=== PATIENT | male | born 1950 | race Caucasian/White ===

== ENCOUNTER 2018-03-30 08:30 | Outpatient (RCR) | payer BC, SELFPAY ==
--- NOTE | 2018-03-05 08:22 | ST.OPTN ---
On February 27, 2018 our therapy services consisting of Speech, Occupational, and Physical therapy transitioned from [employer] electronic documentation system to a new [employer] electronic system. All documentation prior to February 27 can be found under [employer] saved data. From February 27 forward, all medical record documentation will be in [employer] 6[employer]1.
--- NOTE | 2018-03-06 10:01 | ST.OPIE ---
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 Pt receiving LSVT Big tx simultaneously. Referral Referring Physician Dr. Barby Ortiz Reason for Referral Reduced vocal loudness secondary to Parkinson's Disease; Referred for LSVT Setting Setting Outpatient Care Patient History General Information 67-yr-old left-handed male with Parkinson's disease, diagnosed ~3.5 yrs ago. Pt has a family history of PD: father, brother. Therefore, he is familiar with the disease and likely progression. He has mild-moderate right side resting hand/arm tremor and states that his c/o low vocal loudness, although the pt states he is naturally soft spoken. He denies changes in swallow, voice, and cognition. The pt is a retired [employer] employee of >30 years. He and his moved to [place] 3 years ago from [place] with plans to retire here. He reported participating in LSVT Loud and Big programs at the recommendation of his Neurologist, Dr. Ortiz, and states he is eager to learn strategies early in disease progression to manage symptoms . Hearing Hearing Level Normal [place] Langauge Language(s) Spoken in the Home [place] Occupational Status Occupation Status Retired from [employer] Previous Therapy Previous Speech-Language Therapy No Oral Motor Assessment Source: [employer] ([facility]). Oral-Motor Eval Completed No - Laryngeal Performance S/Z Ratio Functional for Speech Yes Reduced Laryngeal Function Relative to No Respiration CAPE-V Overall Severity 15% Roughness 22%, intermittent. Greater with increased vocal loudness. Breathiness 0% Strain 0% Pitch 5% Loudness 25% Normal Resonance? Yes Additional Features Pitch Instability Other Features Observed Improved jitter & shimmer with increased vocal loudness. Maximum Phonation Time MPT Norms: Women (15-25) Men (25-35) Loudness (50-60 dB); Speaking Rate: Oral Reading of Sentences (190 Words Per Minute); Oral Reading of Paragraphs (160-170 WPM); Speaking Rate in Conversation (150-250 WPM) Maximum Phonation Time 24 Maximum Phonation Time Adequate for Speech Reduced Unstable Loudness Jitter/Shimmer Norms: Jitter (Less than or equal to 1.040% - Frequency) Norms: Shimmer (Less than or equal to 3.810% - Amplitude) Jitter Best in 3 trials: 048%. WNL in 2/3 trials Shimmer Best in 3 trials: 3.72%. Impaired in 3/3 trials. Pitch [place] Pitch [place] WFL Breath Support Breath Support At Rest Thoracic Clavicular Mixed Breath Support Sustained Phonation Abdominal Breath Support Conversation Abdominal Clavicular Mixed Speaks on Room Air Yes Postural Alignment Stance Balanced Shoulders Symmetrical Voice Pitch Range Norms: Women (100-300 Hz) Men (70-250 Hz) Fundamental Frequency Norms: Women (Mean: 225 Hz; Range: 155-334 Hz) Men ( Mean: 128 Hz; Range: 85-196 Hz) Voice Pitch Normal Voice Loudness Moderately Soft/Quiet Monoloudness Voice Phonatory-based Quality Normal Fundamental Frequency 116 Hz, WNL Intensity <60 dB in conversation Paradoxical Vocal Fold Movement No Indications Resonance Nasal Resonance Normal Oral Resonance Normal Therapeutic Techniques Therapy Tactics Breath Support Increase Loudness Findings Findings Mild Impairment Voice/Resonance Assessment Assessment Pt presents with mild vocal impairment secondary to Parkinson's disease and characterized by mild-moderate reduced vocal loudness, abnormal loudness perturbation , intermittent pitch perturbances which improve with increased vocal loudness, occasional hoarseness with increased vocal loudness, and mild monotone pitch. The pt was stimulable to LSVT treatment techniques and is early in the disease process, making him an excellent candidate for LSVT-Loud therapy. Prognosis Rehabilitation Potential Excellent - Recommendations Treatment Recommended Yes Treatment Frequency/Duration 16 sessions in 4-5 wks Placement Recommendation Home Therapy Recommendations Initiate LSVT-Loud treatment Short Term Goals 1. Sustain vowel phonation for 25 seconds at 70 dB or greater across 3 trials. 2. Perform pitch glide exercises with average loudness levels of 65 dB or greater across 3 treatment sessions. 3. Read phrases with average loudness levels of 65 dB with 90% accuracy. 4. Perform HEP tasks 2x daily with 90% accuracy over 2 weeks . Long-Term Goals 1. Demonstrate breath support for target loudness WNL. 2. Pitch Range WNL at average loudness levels of 65 dB or greater. 3. Demonstrate independent ability to modify vocal loudness to meet the needs of conversation partners and settings while maitaining >95% speech intelligibility. 4. Demonstrate consistent compliance with HEP tasks to maintain vocal loudness and speech intelligibility WNL. Patient/Caregiver Education Patient/Family Education Described results of evaluation Patient Understanding Patient Demonstration Patient Needs More Info Please Sign and Return: I have reviewed this Plan of Care and certify that the skilled therapy services above are required to meet the patient???s needs. Physician Signature Date Printed Name and Credentials
--- NOTE | 2018-04-02 09:20 | ST.OPDS ---
PRIMARY SCHOOL TEACHER Treatment Note PRIMARY SCHOOL TEACHER Treatment Note Start: 03/05/18 10:48 Freq: Status: Active Protocol: Document 03/30/18 09:31 [email or web address] (Rec: 03/30/18 09:46 [email or web address]) Speech Pathology Treatment Note Session Time Visit Start Time 08:30 Visit Stop Time 09:30 Total Visit Minutes 60 Visit Information Visit Number Plan of Care Dates 03/05/18 - 04/06/18 Insurance Information Fed Setting Treatment Setting Outpatient Care Visit Type Note Type Discharge Summary General Information General Information Parkinson's disease dx ~3.5 yrs ago. Pt with family hx of PD (father, brother). Subjective Observations/Patient Presentation Pt w/ symptoms of seasonal allergies. No other complaints . Reports feeling comfortable with discharge to HEP. Chief Complaint(s) Voice Additional Areas of Concern Progressive effects of PD Rehab Expectation/Goals: Patient Goals Increase loudness/speech intelligibility Patient Knowledge/Awareness of PRIMARY SCHOOL TEACHER Role Excellent in Treatment Patient/Caregiver Compliance with Home Good Exercise Program Objective Short Term Goals 1. Sustain vowel phonation for 20 sec with avg 75 dB x 3 trials. -- Goal Not Met. Max phonation time/loudness met over course of treatment = 28. 25 sec @ 74.3 dB 2. Maintain average loudness levels of 65 dB or greater in conversation of 10 min with 90 % accuracy. -- Goal Met. 3. Perform HEP tasks 2x daily with 90% accuracy over 2 weeks . -- 80% of goal met. Prison Goals 1. Demonstrate breath support for target loudness WNL. -- Goal Met 2. Pitch Range WNL at average loudness levels of 65 dB or greater. -- Goal Met 3. Demonstrate independent ability to modify vocal loudness to meet the needs of conversation partners and settings while maintaining >95% speech intelligibility. -- Goal Met 4. Demonstrate consistent compliance with HEP tasks to maintain vocal loudness and speech intelligibility WNL. -- 80% of Goal Met Treatment Activities Sustained Phonation: MPT=24.75 sec @ 70.9 dB; Avg Loudness 73.5 dB. Acoustic Measures x 3 trials: Fundamental Frequency WNL; Jitter WNL; Shimmer WNL in 2/3 trials. Skilled education/feedback RE performance over course of tx including playback of voice recordings from day of initial evaluation and today. The pt verbalized surprise and pleasure at the increased loudness levels demonstrated and reported equal effort level in producing soft voice at SOC and in producing louder voice today, indicating increased strength of respiratory and laryngeal musculature since SOC. Conversation: 66-71 dB during spontaneous conversation in quiet environment. 73 dB in conversation of 15 min in environment with background noise levels of 69 dB. Pt was 100% intelligible. Pt adapted voice appropriately and independently according to background noise levels. Pt Education: HEP tasks, discharge to HEP, available f/ u of LSVT training in the future, and potential impacts of disease progression on swallow, speech intelligibility, vocal quality , and cognition. Information RE swallow and aspiration risks/precautions provided orally and in writing. Assessment Patient Response to Treatment Good Rehab Potential Excellent Impairments Identified Speech Intelligibility Vocal Quality Progress Towards Goals Excellent Progress Assessment of Overall Progress Improving Rehabilitated Assessment of Improvement Over the course of tx, the pt has demonstrated excellent progress, with goals advancing in conjunction with his performance. The pt has increased loudness levels of conversational speech from <60 dB at SOC to 66-72 dB (WNL) in quiet environments and up to 78 dB in environments with background noise levels as high as 75 dB. He is able to consistently and appropriately modify his loudness levels to meet the needs of multiple listeners in various environments. Occasionally the pt has required cues to maintain target loudness levels, particularly in quiet environments, but has consistently produced speech that is 100% intelligible to this listener. While often uncomfortable with LSVT exercises, the pt has demonstrated pitch range WNL and target loudness levels and has exhibited excellent endurance and compliance with tx tasks. He understands and is able to perform HEP tasks at home, although reports that he is hesitant in being as loud at home as he is in treatment. Education and recommendations have been made regarding importance of HEP tasks for carryover of tx gains, as well as alternative pitch range exercises to reduce risk of monotone voice with disease progression. The pt has exhibited excellent understanding throughout treatment and self-monitoring/ correcting skills. Reviewed with Patient Goals Progress Being Made Home Exercise Program Patient/Caregiver Understanding Excellent Plan Therapeutic Contents Client Education Home Exercise Program Voice Training Provided Patient/Caregiver Instruction Home Exercise Program Plan of Care Questions/Concerns Therapy Recommendations Discharge to Home Exercise Program Visit Care Team Role Provider Type Barby Ortiz MD Attending Provider Non-Staff Primary Care Provider Address: [address] [place] [address], [id number] Please Sign and Return: I have reviewed this Plan of Care and certify that the skilled therapy services above are required to meet the patient?s needs. Physician Signature Date Printed Name and Credentials Clinical Instructor Signature Printed Name and Credentials
== END 2018-03-31 10:52 ==
LOC: SP 08:30
PROVIDERS: PCP Psychiatry & Neurology Neurology; Visit Provider Psychiatry & Neurology Neurology
DX: G20 Parkinson's disease (principal)
CPT/HCPCS: 92507; 92520; 92524

== ENCOUNTER 2018-03-30 09:30 | Outpatient (RCR) | payer BC, SELFPAY ==
--- NOTE | 2018-03-05 15:59 | PT.OIE ---
Current Diagnoses Parkinson's disease (03/05/18) Past Medical History (Last Updated 03/05/18 @ 10:46 by Yulissa Gifford, PT) Pacemaker (Acute) Physical Therapy Initial Evaluation PT-OP-A Visit Information Start: 03/05/18 09:28 Freq: Status: Active Protocol: Activity Type Activity Date Activity User E-Sign Co-Sign Detail Recorded Client Recorded Date Recorded By Document 03/05/18 09:30 AMB [email or web address] 03/05/18 11:45 AMB 03/05/18 09:30 Out-Patient Physical Therapy Visit Information [Visit Information] -Visit Type Initial Evaluation -Visit Start Time 09:30 -Visit Stop Time 10:30 -Total Visit Minutes 60 -Visit Number 1 [Evaluation Information] -Evaluation Date 03/05/18 PT-OP-B Current Condition Start: 03/05/18 09:28 Freq: Status: Active Protocol: Activity Type Activity Date Activity User E-Sign Co-Sign Detail Recorded Client Recorded Date Recorded By Document 03/05/18 09:30 AMB [email or web address] 03/05/18 11:49 AMB 03/05/18 09:30 Current Condition [History of Current Condition] -Current Complaints R hand tremor, decreased gait speed -History of Current Condition The patient notes Parkinson 's diagnosis 3. 5 years ago. His main symptom is R hand tremor. He is left handed. His father and brother have also been diagnosed with Parkinson's. [Prior Functional Status] -Baseline Function- ADL's Independent -Baseline Function- Mobility Independent [Current Functional Impairments ( Reported)] -Functional Limitations- ADL's Increased time to get belt on. Decreased gait speed. [Personal Factors] -Other Personal Factors That May Pacemaker Effect Therapy/Recovery PT-OP-C Subjective Start: 03/05/18 09:28 Freq: Status: Active Protocol: Activity Type Activity Date Activity User E-Sign Co-Sign Detail Recorded Client Recorded Date Recorded By Document 03/05/18 09:30 AMB [email or web address] 03/05/18 11:49 AMB 03/05/18 09:30 OP-PT Subjective [Patient Comments] -Patient Comments Patient states that with meds he does not feel his symptoms have progressed very much over the last 3 years. OP-PT Pain Assessment [Pain Assessment Grid] -Paper Pain Assessment Grid Completed Yes [Location] Left Shoulder -Pain Location Details Associated with yard work, goes down to elbow -Intensity 7 -Scale Used Numeric (1 - 10 ) -Frequency Intermittent PT-OP-D Balance Start: 03/05/18 09:28 Freq: Status: Active Protocol: Activity Type Activity Date Activity User E-Sign Co-Sign Detail Recorded Client Recorded Date Recorded By Document 03/05/18 09:30 AMB [email or web address] 03/05/18 11:57 AMB 03/05/18 09:30 Balance Tests [Romberg] -Romberg steps after 10 seconds [Single Limb Standing] -Single Limb- Right 15 seconds -Single Limb- Left 15 seconds [Semi-Tandem Standing] -Semi-Tandem Standing Balance with head turns and eyes closed increased sway but able to perform PT-OP-E Functional Tests Start: 03/05/18 09:28 Freq: Status: Active Protocol: Activity Type Activity Date Activity User E-Sign Co-Sign Detail Recorded Client Recorded Date Recorded By Document 03/05/18 09:30 AMB [email or web address] 03/05/18 15:32 AMB 03/05/18 09:30 Functional Tests [6 Minute Walk Test] -Distance 1858 feet -Device Used none [Five Times Sit to Stand Test] -Score 8 seconds PT-OP-G Mobility & Gait Start: 03/05/18 09:28 Freq: Status: Active Protocol: Activity Type Activity Date Activity User E-Sign Co-Sign Detail Recorded Client Recorded Date Recorded By Document 03/05/18 09:30 AMB [email or web address] 03/05/18 15:32 AMB 03/05/18 09:30 OP Gait Assessment [Gait] -Gait Assistance Required: Independent [Assistive Devices] -Assistive Device None [Comments] -Gait Comments Decreased R arm swing even with fast gait. Decreased trunk rotation. PT-OP-H Neuro Start: 03/05/18 09:28 Freq: Status: Active Protocol: Activity Type Activity Date Activity User E-Sign Co-Sign Detail Recorded Client Recorded Date Recorded By Document 03/05/18 09:30 AMB [email or web address] 03/05/18 15:32 AMB 03/05/18 09:30 Muscle Tone [Tone Assessment] 1 -Manifestations of Tone Resting Tremors PT-OP-J Posture/Palpation/Skin Start: 03/05/18 09:28 Freq: Status: Active Protocol: Activity Type Activity Date Activity User E-Sign Co-Sign Detail Recorded Client Recorded Date Recorded By Document 03/05/18 09:30 AMB [email or web address] 03/05/18 15:32 AMB 03/05/18 09:30 Posture Evaluation [Position] Standing -Evaluation View Lateral -Head/C-Spine Posture Forward Head PT-OP-K Range of Motion Start: 03/05/18 09:28 Freq: Status: Active Protocol: Activity Type Activity Date Activity User E-Sign Co-Sign Detail Recorded Client Recorded Date Recorded By Document 03/05/18 09:30 AMB [email or web address] 03/05/18 15:32 AMB 03/05/18 09:30 Shoulder Goniometric Range of Motion [Shoulder] Measured in Degrees L -Testing Position Sitting -Flexion 150 R -Testing Position Sitting -Flexion 160 PT-OP-M Strength Start: 03/05/18 09:28 Freq: Status: Active Protocol: Activity Type Activity Date Activity User E-Sign Co-Sign Detail Recorded Client Recorded Date Recorded By Document 03/05/18 09:30 AMB [email or web address] 03/05/18 15:32 AMB 03/05/18 09:30 Hip Strength [Hip Manual Muscle Testing] Right -Flexion (L2) 4 Good -Extension (S1) 4 Good -Abduction 4 Good -Adduction 4 Good Left -Flexion (L2) 4+ Good+ -Extension (S1) 4+ Good+ -Abduction 4+ Good+ -Adduction 4+ Good+ Knee Strength [Knee Manual Muscle Testing] Left -Flexion (S2) 5 Normal -Extension (L3) 5 Normal R -Flexion (S2) 5 Normal -Extension (L3) 5 Normal Ankle/Foot Strength [Ankle and Foot Manual Muscle Testing] Right -Dorsiflexion (L4) 4+ Good+ -Plantarflexion (S1) 4+ Good+ Left -Dorsiflexion (L4) 4+ Good+ -Plantarflexion (S1) 4+ Good+ PT-OP-Q Treatments Start: 03/05/18 09:28 Freq: Status: Active Protocol: Activity Type Activity Date Activity User E-Sign Co-Sign Detail Recorded Client Recorded Date Recorded By Document 03/05/18 09:30 AMB [email or web address] 03/05/18 15:40 AMB 03/05/18 09:30 Neuro Re-Education Treatment [Coordination Activities] 1 -Details Stride stance forward weight shift with UE flex/ ext -Reps/Duration 20 PT-OP-T Assessment and Plan Start: 03/05/18 09:28 Freq: Status: Active Protocol: Activity Type Activity Date Activity User E-Sign Co-Sign Detail Recorded Client Recorded Date Recorded By Document 03/05/18 09:30 AMB [email or web address] 03/05/18 15:57 AMB 03/05/18 09:30 Physical Therapy Assessment [Rehab Potential] -Rehabilitation Potential Good [Evaluation Complexity] -Number of Personal Factors/ 1-2 Comorbidities -Number of Body Systems Impaired 3 -Clinical Presentation at Evaluation Stable [Impairments] -Impairments Balance Coordination Gait [Goals] 3 -Impairment Functional movement -Short Term Goal (STG) The patient will don and doff his belt without difficulty. -STG Duration 2 weeks -Custodial Goal (LTG) The patient will put his jacket on without difficulty and without shoulder pain. -LTG Duration 4 weeks 2 -Impairment Balance -Short Term Goal (STG) The patient will improve his eyes open single leg balance to 30 seconds bilaterally. -STG Duration 2 weeks -Tire Duster Goal (LTG) The patient will perform yard work for 1 hour without LOB. 1 -Impairment Gait -Short Term Goal (STG) The patient will ambulate with his and keep up with her speed over unevern surfaces. -STG Duration 2 weeks -Tire Duster Goal (LTG) The patient will increase his 6MWT to 2, 000 feet. -LTG Duration 4 weeks [Assessment Summary] -Assessment The patient presents to physical therapy with 3. 5 year history of Parkinson's Disease that presents with predominant R UE tremor. He states that he is slightly slower with things than he used to be, and his walking is a bit slower, so he is hoping to improve that. His 6 MWT and 5x sit to stand were within normal limits for his age and gender, but he did show reduced arm swing on the right. He will benefit from LSVT BIG therapy to progress his dynamic balance and multidirectiona l coordination. Physical Therapy Plan [Frequency and Duration] -Frequency of Treatment 4x/Week -Duration of Treatment 1 month -Plan of Care Start Date 03/05/18 -Plan of Care End Date 04/05/18 [Therapeutic Interventions] -Therapeutic Interventions Balance Training Coordination Training Gait Training Manual Therapy Neuromuscular Re-education Self-Care/Home Management Therapeutic Activities Therapeutic Exercises -Modalities Cold Pack/Ice Massage Provider Signature Date
--- NOTE | 2018-03-05 16:01 | PT.OPPOC ---
Current Diagnoses Parkinson's disease (03/05/18) Plan Of Care PT-OP-T Assessment and Plan Start: 03/05/18 09:28 Freq: Status: Active Protocol: Activity Type Activity Date Activity User E-Sign Co-Sign Detail Recorded Client Recorded Date Recorded By Document 03/05/18 09:30 AMB [email or web address] 03/05/18 15:57 AMB 03/05/18 09:30 Physical Therapy Assessment [Rehab Potential] -Rehabilitation Potential Good [Evaluation Complexity] -Number of Personal Factors/ 1-2 Comorbidities -Number of Body Systems Impaired 3 -Clinical Presentation at Evaluation Stable [Impairments] -Impairments Balance Coordination Gait [Goals] 3 -Impairment Functional movement -Short Term Goal (STG) The patient will don and doff his belt without difficulty. -STG Duration 2 weeks -Shop Tech Goal (LTG) The patient will put his jacket on without difficulty and without shoulder pain. -LTG Duration 4 weeks 2 -Impairment Balance -Short Term Goal (STG) The patient will improve his eyes open single leg balance to 30 seconds bilaterally. -STG Duration 2 weeks -Alf Goal (LTG) The patient will perform yard work for 1 hour without LOB. 1 -Impairment Gait -Short Term Goal (STG) The patient will ambulate with his and keep up with her speed over unevern surfaces. -STG Duration 2 weeks -Alf Goal (LTG) The patient will increase his 6MWT to 2, 000 feet. -LTG Duration 4 weeks [Assessment Summary] -Assessment The patient presents to physical therapy with 3. 5 year history of Parkinson's Disease that presents with predominant R UE tremor. He states that he is slightly slower with things than he used to be, and his walking is a bit slower, so he is hoping to improve that. His 6 MWT and 5x sit to stand were within normal limits for his age and gender, but he did show reduced arm swing on the right. He will benefit from LSVT BIG therapy to progress his dynamic balance and multidirectiona l coordination. Physical Therapy Plan [Frequency and Duration] -Frequency of Treatment 4x/Week -Duration of Treatment 1 month -Plan of Care Start Date 03/05/18 -Plan of Care End Date 04/05/18 [Therapeutic Interventions] -Therapeutic Interventions Balance Training Coordination Training Gait Training Manual Therapy Neuromuscular Re-education Self-Care/Home Management Therapeutic Activities Therapeutic Exercises -Modalities Cold Pack/Ice Massage Plan of Care Dates Plan of Care Start Date 03/05/18 Plan of Care End Date 04/05/18 Provider Visit Care Team Role Provider Type Barby Ortiz MD Attending Provider Non-Staff Primary Care Provider Specialty: Neurology Address: [address] [place] [address], [id number] Email: Please Sign and Return: I have reviewed this Plan of Care and certify that the skilled therapy services above are required to meet the patient???s needs. Physician Signature Date Printed Name and Credentials
--- NOTE | 2018-03-06 16:10 | PT.OTN ---
Current Diagnoses Parkinson's disease (03/06/18) Physical Therapy Treatment Note PT-OP-A Visit Information Start: 03/05/18 09:28 Freq: Status: Active Protocol: Activity Type Activity Date Activity User E-Sign Co-Sign Detail Recorded Client Recorded Date Recorded By Document 03/06/18 09:30 AMB [email or web address] 03/06/18 16:03 AMB 03/06/18 09:30 Out-Patient Physical Therapy Visit Information [Visit Information] -Visit Note 75 visits authorized -Visit Start Time 09:30 -Visit Stop Time 10:30 -Total Visit Minutes 60 -Visit Number 2 [Evaluation Information] -Evaluation Date 03/05/18 PT-OP-B Current Condition Start: 03/05/18 09:28 Freq: Status: Active Protocol: Activity Type Activity Date Activity User E-Sign Co-Sign Detail Recorded Client Recorded Date Recorded By Document 03/05/18 09:30 AMB [email or web address] 03/05/18 11:49 AMB 03/05/18 09:30 Current Condition [History of Current Condition] -Current Complaints R hand tremor, decreased gait speed -History of Current Condition The patient notes Parkinson 's diagnosis 3. 5 years ago. His main symptom is R hand tremor. He is left handed. His father and brother have also been diagnosed with Parkinson's. [Prior Functional Status] -Baseline Function- ADL's Independent -Baseline Function- Mobility Independent [Current Functional Impairments ( Reported)] -Functional Limitations- ADL's Increased time to get belt on. Decreased gait speed. [Personal Factors] -Other Personal Factors That May Pacemaker Effect Therapy/Recovery PT-OP-C Subjective Start: 03/05/18 09:28 Freq: Status: Active Protocol: Activity Type Activity Date Activity User E-Sign Co-Sign Detail Recorded Client Recorded Date Recorded By Document 03/06/18 09:30 AMB [email or web address] 03/06/18 16:03 AMB 03/06/18 09:30 OP-PT Subjective [Patient Comments] -Patient Reported Progress Same PT-OP-D Balance Start: 03/05/18 09:28 Freq: Status: Active Protocol: Activity Type Activity Date Activity User E-Sign Co-Sign Detail Recorded Client Recorded Date Recorded By Document 03/05/18 09:30 AMB [email or web address] 03/05/18 11:57 AMB 03/05/18 09:30 Balance Tests [Romberg] -Romberg steps after 10 seconds [Single Limb Standing] -Single Limb- Right 15 seconds -Single Limb- Left 15 seconds [Semi-Tandem Standing] -Semi-Tandem Standing Balance with head turns and eyes closed increased sway but able to perform PT-OP-E Functional Tests Start: 03/05/18 09:28 Freq: Status: Active Protocol: Activity Type Activity Date Activity User E-Sign Co-Sign Detail Recorded Client Recorded Date Recorded By Document 03/05/18 09:30 AMB [email or web address] 03/05/18 15:32 AMB 03/05/18 09:30 Functional Tests [6 Minute Walk Test] -Distance 1858 feet -Device Used none [Five Times Sit to Stand Test] -Score 8 seconds PT-OP-G Mobility & Gait Start: 03/05/18 09:28 Freq: Status: Active Protocol: Activity Type Activity Date Activity User E-Sign Co-Sign Detail Recorded Client Recorded Date Recorded By Document 03/05/18 09:30 AMB [email or web address] 03/05/18 15:32 AMB 03/05/18 09:30 OP Gait Assessment [Gait] -Gait Assistance Required: Independent [Assistive Devices] -Assistive Device None [Comments] -Gait Comments Decreased R arm swing even with fast gait. Decreased trunk rotation. PT-OP-H Neuro Start: 03/05/18 09:28 Freq: Status: Active Protocol: Activity Type Activity Date Activity User E-Sign Co-Sign Detail Recorded Client Recorded Date Recorded By Document 03/05/18 09:30 AMB [email or web address] 03/05/18 15:32 AMB 03/05/18 09:30 Muscle Tone [Tone Assessment] 1 -Manifestations of Tone Resting Tremors PT-OP-J Posture/Palpation/Skin Start: 03/05/18 09:28 Freq: Status: Active Protocol: Activity Type Activity Date Activity User E-Sign Co-Sign Detail Recorded Client Recorded Date Recorded By Document 03/05/18 09:30 AMB [email or web address] 03/05/18 15:32 AMB 03/05/18 09:30 Posture Evaluation [Position] Standing -Evaluation View Lateral -Head/C-Spine Posture Forward Head PT-OP-K Range of Motion Start: 03/05/18 09:28 Freq: Status: Active Protocol: Activity Type Activity Date Activity User E-Sign Co-Sign Detail Recorded Client Recorded Date Recorded By Document 03/05/18 09:30 AMB [email or web address] 03/05/18 15:32 [facility] 03/05/18 09:30 Shoulder Goniometric Range of Motion [Shoulder] Measured in Degrees L -Testing Position Sitting -Flexion 150 R -Testing Position Sitting -Flexion 160 PT-OP-M Strength Start: 03/05/18 09:28 Freq: Status: Active Protocol: Activity Type Activity Date Activity User E-Sign Co-Sign Detail Recorded Client Recorded Date Recorded By Document 03/05/18 09:30 [facility] [email or web address] 03/05/18 15:32 [facility] 03/05/18 09:30 Hip Strength [Hip Manual Muscle Testing] Right -Flexion (L2) 4 Good -Extension (S1) 4 Good -Abduction 4 Good -Adduction 4 Good Left -Flexion (L2) 4+ Good+ -Extension (S1) 4+ Good+ -Abduction 4+ Good+ -Adduction 4+ Good+ Knee Strength [Knee Manual Muscle Testing] Left -Flexion (S2) 5 Normal -Extension (L3) 5 Normal R -Flexion (S2) 5 Normal -Extension (L3) 5 Normal Ankle/Foot Strength [Ankle and Foot Manual Muscle Testing] Right -Dorsiflexion (L4) 4+ Good+ -Plantarflexion (S1) 4+ Good+ Left -Dorsiflexion (L4) 4+ Good+ -Plantarflexion (S1) 4+ Good+ PT-OP-Q Treatments Start: 03/05/18 09:28 Freq: Status: Active Protocol: Activity Type Activity Date Activity User E-Sign Co-Sign Detail Recorded Client Recorded Date Recorded By Document 03/06/18 09:30 [facility] [email or web address] 03/06/18 13:01 [facility] 03/06/18 09:30 Therapeutic Exercises [Sitting Exercises] 2 -Sitting Exercise Name seated rotation with reach -Side bilateral -Reps/Minutes 10 1 -Sitting Exercise Name forward flexion , then seated shoulder horizontal abduction -Side bilateral -Reps/Minutes 10 [Standing Exercises] 2 -Standing Exercise Name calf stretch -Side bilateral -Equipment Used JOSEPH 1 -Standing Exercise Name pec stretch -Side bilateral Gait Training [Gait Activity] 1 -Description smooth surface with attention to trunk rotation -Distance/Duration 10 minutes Neuro Re-Education Treatment [Balance Activities] 5 -Details Backward stepping -Reps/Duration 10 each 4 -Details Lateral stepping -Reps/Duration 10 each 3 -Details Forward stepping -Reps/Duration 10 each 2 -Details WBOS trunk rotation -Surface firm -Reps/Duration 12 each side 1 -Details Stride stance weightshifting with alternating UE movement -Surface firm -Reps/Duration 12 each side PT-OP-T Assessment and Plan Start: 03/05/18 09:28 Freq: Status: Active Protocol: Activity Type Activity Date Activity User E-Sign Co-Sign Detail Recorded Client Recorded Date Recorded By Document 03/06/18 09:30 AMB [email or web address] 03/06/18 16:10 AMB 03/06/18 09:30 Physical Therapy Assessment [Assessment Summary] -Assessment Pt with good tolerance of balance and exercise exercises, better arm swing with gait today. Physical Therapy Plan [Frequency and Duration] -Frequency of Treatment 4x/Week -Duration of Treatment 1 month -Plan of Care End Date 04/05/18 [Next Visit Focus/Plan] -Next Visit Plan Progress independence with exercise and balance activities.
--- NOTE | 2018-03-07 11:56 | PT.OTN ---
Current Diagnoses Parkinson's disease (03/07/18) Physical Therapy Treatment Note PT-OP-A Visit Information Start: 03/05/18 09:28 Freq: Status: Active Protocol: Document 03/07/18 11:39 AMB (Rec: 03/07/18 11:49 AMB [email or web address]) Out-Patient Physical Therapy Visit Information Visit Information Visit Type Treatment Note Visit Note 75 visits authorized Visit Start Time 09:30 Visit Stop Time 10:30 Total Visit Minutes 60 Visit Number 3 Evaluation Information Evaluation Date 03/05/18 PT-OP-B Current Condition Start: 03/05/18 09:28 Freq: Status: Active Protocol: Document 03/05/18 09:30 AMB (Rec: 03/05/18 11:49 AMB [email or web address]) Current Condition History of Current Condition Current Complaints R hand tremor, decreased gait speed History of Current Condition The patient notes Parkinson's diagnosis 3.5 years ago. His main symptom is R hand tremor. He is left handed. His father and brother have also been diagnosed with Parkinson' s. Prior Functional Status Baseline Function- ADL's Independent Baseline Function- Mobility Independent Current Functional Impairments (Reported) Functional Limitations- ADL's Increased time to get belt on. Decreased gait speed. Personal Factors Other Personal Factors That May Effect Pacemaker Therapy/Recovery PT-OP-C Subjective Start: 03/05/18 09:28 Freq: Status: Active Protocol: Document 03/07/18 11:39 AMB (Rec: 03/07/18 11:49 AMB [email or web address]) OP-PT Subjective Patient Comments Patient Comments Patient reports he did his HEP last night and he thinks it went fine. PT-OP-D Balance Start: 03/05/18 09:28 Freq: Status: Active Protocol: Document 03/05/18 09:30 AMB (Rec: 03/05/18 11:57 AMB [email or web address]) Balance Tests Romberg Romberg steps after 10 seconds Single Limb Standing Single Limb- Right 15 seconds Single Limb- Left 15 seconds Semi-Tandem Standing Semi-Tandem Standing Balance with head turns and eyes closed increased sway but able to perform PT-OP-E Functional Tests Start: 03/05/18 09:28 Freq: Status: Active Protocol: Document 03/05/18 09:30 AMB (Rec: 03/05/18 15:32 AMB [email or web address]) Functional Tests 6 Minute Walk Test Distance 1858 feet Device Used none Five Times Sit to Stand Test Score 8 seconds PT-OP-G Mobility & Gait Start: 03/05/18 09:28 Freq: Status: Active Protocol: Document 03/05/18 09:30 AMB (Rec: 03/05/18 15:32 AMB [email or web address]) OP Gait Assessment Gait Gait Assistance Required: Independent Assistive Devices Assistive Device None Comments Gait Comments Decreased R arm swing even with fast gait. Decreased trunk rotation. PT-OP-H Neuro Start: 03/05/18 09:28 Freq: Status: Active Protocol: Document 03/05/18 09:30 AMB (Rec: 03/05/18 15:32 AMB [email or web address]) Muscle Tone Tone Assessment 1 Manifestations of Tone Resting Tremors PT-OP-J Posture/Palpation/Skin Start: 03/05/18 09:28 Freq: Status: Active Protocol: Document 03/05/18 09:30 AMB (Rec: 03/05/18 15:32 AMB [email or web address]) Posture Evaluation Position Standing Evaluation View Lateral Head/C-Spine Posture Forward Head PT-OP-K Range of Motion Start: 03/05/18 09:28 Freq: Status: Active Protocol: Document 03/05/18 09:30 AMB (Rec: 03/05/18 15:32 AMB [email or web address]) Shoulder Goniometric Range of Motion Shoulder Measured in Degrees L Testing Position Sitting Flexion 150 R Testing Position Sitting Flexion 160 PT-OP-M Strength Start: 03/05/18 09:28 Freq: Status: Active Protocol: Document 03/05/18 09:30 AMB (Rec: 03/05/18 15:32 AMB [email or web address]) Hip Strength Hip Manual Muscle Testing Right Flexion (L2) 4 Good Extension (S1) 4 Good Abduction 4 Good Adduction 4 Good Left Flexion (L2) 4+ Good+ Extension (S1) 4+ Good+ Abduction 4+ Good+ Adduction 4+ Good+ Knee Strength Knee Manual Muscle Testing Left Flexion (S2) 5 Normal Extension (L3) 5 Normal R Flexion (S2) 5 Normal Extension (L3) 5 Normal Ankle/Foot Strength Ankle and Foot Manual Muscle Testing Right Dorsiflexion (L4) 4+ Good+ Plantarflexion (S1) 4+ Good+ Left Dorsiflexion (L4) 4+ Good+ Plantarflexion (S1) 4+ Good+ PT-OP-Q Treatments Start: 03/05/18 09:28 Freq: Status: Active Protocol: Document 03/07/18 09:30 AMB (Rec: 03/07/18 10:29 AMB [id number]) Therapeutic Exercises Sitting Exercises 2 Sitting Exercise Name seated rotation with reach Side bilateral Reps/Minutes 10 1 Sitting Exercise Name forward flexion, then seated shoulder horizontal abduction Side bilateral Reps/Minutes 10 Standing Exercises 2 Standing Exercise Name calf stretch Side bilateral Equipment Used JOSEPH 1 Standing Exercise Name pec stretch Side bilateral Therapeutic Activity Therapeutic Activity 1 Name Lifting 10# Reps/Minutes 5 Comments Practice for making retaining wall Gait Training Gait Activity 1 Description smooth surface with attention to trunk rotation Distance/Duration 10 minutes Neuro Re-Education Treatment Balance Activities 5 Details Backward stepping Reps/Duration 10 each 4 Details Lateral stepping Reps/Duration 10 each 3 Details Forward stepping Reps/Duration 10 each 2 Details WBOS trunk rotation Surface firm Reps/Duration 12 each side 1 Details Stride stance weightshifting with alternating UE movement Surface firm Reps/Duration 12 each side PT-OP-T Assessment and Plan Start: 03/05/18 09:28 Freq: Status: Active Protocol: Document 03/07/18 11:39 AMB (Rec: 03/07/18 11:49 AMB [email or web address]) Physical Therapy Assessment Goals 3 Impairment Functional movement Short Term Goal (STG) The patient will don and doff his belt without difficulty. STG Duration 2 weeks Alley Worker Goal (LTG) The patient will put his jacket on without difficulty and without shoulder pain. LTG Duration 4 weeks 2 Impairment Balance Short Term Goal (STG) The patient will improve his eyes open single leg balance to 30 seconds bilaterally. STG Duration 2 weeks Alley Worker Goal (LTG) The patient will perform yardwork for 1 hour without LOB. 1 Impairment Gait Short Term Goal (STG) The patient will ambulate with his and keep up with her speed over unevern surfaces. STG Duration 2 weeks Alley Worker Goal (LTG) The patient will increase his 6MWT to 2,000 feet. LTG Duration 4 weeks Assessment Summary Assessment Pt with good response to feedback for form with exercises. Physical Therapy Plan Next Visit Focus/Plan Next Visit Plan Try cognitive distraction with gait
--- NOTE | 2018-03-09 10:28 | PT.OTN ---
Current Diagnoses Parkinson's disease (03/08/18) Physical Therapy Treatment Note PT-OP-A Visit Information Start: 03/05/18 09:28 Freq: Status: Active Protocol: Document 03/08/18 09:30 AMB (Rec: 03/08/18 09:30 AMB [id number]) Out-Patient Physical Therapy Visit Information Visit Information Visit Type Treatment Note Visit Start Time 09:30 Visit Stop Time 10:30 Total Visit Minutes 60 Visit Number 4 PT-OP-B Current Condition Start: 03/05/18 09:28 Freq: Status: Active Protocol: Document 03/05/18 09:30 AMB (Rec: 03/05/18 11:49 AMB [email or web address]) Current Condition History of Current Condition Current Complaints R hand tremor, decreased gait speed History of Current Condition The patient notes Parkinson's diagnosis 3.5 years ago. His main symptom is R hand tremor. He is left handed. His father and brother have also been diagnosed with Parkinson' s. Prior Functional Status Baseline Function- ADL's Independent Baseline Function- Mobility Independent Current Functional Impairments (Reported) Functional Limitations- ADL's Increased time to get belt on. Decreased gait speed. Personal Factors Other Personal Factors That May Effect Pacemaker Therapy/Recovery PT-OP-C Subjective Start: 03/05/18 09:28 Freq: Status: Active Protocol: Document 03/08/18 09:54 AMB (Rec: 03/08/18 09:55 AMB [id number]) OP-PT Subjective Patient Comments Patient Comments The patient reports he slept poorly last night. Patient Reported Progress Same PT-OP-D Balance Start: 03/05/18 09:28 Freq: Status: Active Protocol: Document 03/05/18 09:30 AMB (Rec: 03/05/18 11:57 AMB [email or web address]) Balance Tests Romberg Romberg steps after 10 seconds Single Limb Standing Single Limb- Right 15 seconds Single Limb- Left 15 seconds Semi-Tandem Standing Semi-Tandem Standing Balance with head turns and eyes closed increased sway but able to perform PT-OP-E Functional Tests Start: 03/05/18 09:28 Freq: Status: Active Protocol: Document 03/05/18 09:30 AMB (Rec: 03/05/18 15:32 AMB [email or web address]) Functional Tests 6 Minute Walk Test Distance 1858 feet Device Used none Five Times Sit to Stand Test Score 8 seconds PT-OP-G Mobility & Gait Start: 03/05/18 09:28 Freq: Status: Active Protocol: Document 03/05/18 09:30 AMB (Rec: 03/05/18 15:32 AMB [email or web address]) OP Gait Assessment Gait Gait Assistance Required: Independent Assistive Devices Assistive Device None Comments Gait Comments Decreased R arm swing even with fast gait. Decreased trunk rotation. PT-OP-H Neuro Start: 03/05/18 09:28 Freq: Status: Active Protocol: Document 03/05/18 09:30 AMB (Rec: 03/05/18 15:32 AMB [email or web address]) Muscle Tone Tone Assessment 1 Manifestations of Tone Resting Tremors PT-OP-J Posture/Palpation/Skin Start: 03/05/18 09:28 Freq: Status: Active Protocol: Document 03/05/18 09:30 AMB (Rec: 03/05/18 15:32 AMB [email or web address]) Posture Evaluation Position Standing Evaluation View Lateral Head/C-Spine Posture Forward Head PT-OP-K Range of Motion Start: 03/05/18 09:28 Freq: Status: Active Protocol: Document 03/05/18 09:30 AMB (Rec: 03/05/18 15:32 AMB [email or web address]) Shoulder Goniometric Range of Motion Shoulder Measured in Degrees L Testing Position Sitting Flexion 150 R Testing Position Sitting Flexion 160 PT-OP-M Strength Start: 03/05/18 09:28 Freq: Status: Active Protocol: Document 03/05/18 09:30 AMB (Rec: 03/05/18 15:32 AMB [email or web address]) Hip Strength Hip Manual Muscle Testing Right Flexion (L2) 4 Good Extension (S1) 4 Good Abduction 4 Good Adduction 4 Good Left Flexion (L2) 4+ Good+ Extension (S1) 4+ Good+ Abduction 4+ Good+ Adduction 4+ Good+ Knee Strength Knee Manual Muscle Testing Left Flexion (S2) 5 Normal Extension (L3) 5 Normal R Flexion (S2) 5 Normal Extension (L3) 5 Normal Ankle/Foot Strength Ankle and Foot Manual Muscle Testing Right Dorsiflexion (L4) 4+ Good+ Plantarflexion (S1) 4+ Good+ Left Dorsiflexion (L4) 4+ Good+ Plantarflexion (S1) 4+ Good+ PT-OP-Q Treatments Start: 03/05/18 09:28 Freq: Status: Active Protocol: Document 03/08/18 09:30 AMB (Rec: 03/09/18 08:16 AMB [email or web address]) Therapeutic Exercises Supine Exercises 2 Supine Exercise Name hamstring stretch Reps/Minutes 30 sec x 2 1 Supine Exercise Name hip flexor stretch Reps/Minutes 30 sec x 2 Sitting Exercises 2 Sitting Exercise Name seated rotation with reach Side bilateral Reps/Minutes 10 1 Sitting Exercise Name forward flexion, then seated shoulder horizontal abduction Side bilateral Reps/Minutes 10 Comments added headturns Standing Exercises 3 Standing Exercise Name theraband shoulder extension Side bilateral Resistance 3 Reps/Minutes 2 x 15 1 Standing Exercise Name pec stretch Side bilateral Gait Training Gait Activity 1 Description smooth surface with attention to trunk rotation Distance/Duration 10 minutes Comments cognitive distraction Neuro Re-Education Treatment Balance Activities 5 Details Backward stepping Reps/Duration 10 each 4 Details Lateral stepping Reps/Duration 10 each 3 Details Forward stepping Reps/Duration 10 each 2 Details WBOS trunk rotation Surface firm Reps/Duration 12 each side 1 Details Stride stance weightshifting with alternating UE movement Surface firm Reps/Duration 12 each side PT-OP-T Assessment and Plan Start: 03/05/18 09:28 Freq: Status: Active Protocol: Document 03/08/18 09:30 AMB (Rec: 03/09/18 10:27 AMB [id number]) Physical Therapy Assessment Assessment Summary Assessment Pt's habit of wearing flip flops changes his gait and reduced natural heel strike bilaterally. Physical Therapy Plan Next Visit Focus/Plan Next Visit Plan The patient is doing well with stretching exercises, progress ROM and posture.
--- NOTE | 2018-03-12 16:06 | PT.OTN ---
Current Diagnoses Parkinson's disease (03/12/18) Physical Therapy Treatment Note PT-OP-A Visit Information Start: 03/05/18 09:28 Freq: Status: Active Protocol: Document 03/12/18 09:29 AMB (Rec: 03/12/18 09:29 AMB [id number]) Out-Patient Physical Therapy Visit Information Visit Information Visit Type Treatment Note Visit Start Time 09:30 Visit Stop Time 10:30 Total Visit Minutes 60 Visit Number 5 Evaluation Information Evaluation Date 03/05/18 PT-OP-B Current Condition Start: 03/05/18 09:28 Freq: Status: Active Protocol: Document 03/05/18 09:30 AMB (Rec: 03/05/18 11:49 AMB [email or web address]) Current Condition History of Current Condition Current Complaints R hand tremor, decreased gait speed History of Current Condition The patient notes Parkinson's diagnosis 3.5 years ago. His main symptom is R hand tremor. He is left handed. His father and brother have also been diagnosed with Parkinson' s. Prior Functional Status Baseline Function- ADL's Independent Baseline Function- Mobility Independent Current Functional Impairments (Reported) Functional Limitations- ADL's Increased time to get belt on. Decreased gait speed. Personal Factors Other Personal Factors That May Effect Pacemaker Therapy/Recovery PT-OP-C Subjective Start: 03/05/18 09:28 Freq: Status: Active Protocol: Document 03/12/18 09:29 AMB (Rec: 03/12/18 12:58 AMB [email or web address]) OP-PT Subjective Patient Comments Patient Comments Patient reports he did his exercises all but one day over the weekend. He was more aware of his arm swing over the weekend. PT-OP-D Balance Start: 03/05/18 09:28 Freq: Status: Active Protocol: Document 03/05/18 09:30 AMB (Rec: 03/05/18 11:57 AMB [email or web address]) Balance Tests Romberg Romberg steps after 10 seconds Single Limb Standing Single Limb- Right 15 seconds Single Limb- Left 15 seconds Semi-Tandem Standing Semi-Tandem Standing Balance with head turns and eyes closed increased sway but able to perform PT-OP-E Functional Tests Start: 03/05/18 09:28 Freq: Status: Active Protocol: Document 03/05/18 09:30 AMB (Rec: 03/05/18 15:32 AMB [email or web address]) Functional Tests 6 Minute Walk Test Distance 1858 feet Device Used none Five Times Sit to Stand Test Score 8 seconds PT-OP-G Mobility & Gait Start: 03/05/18 09:28 Freq: Status: Active Protocol: Document 03/05/18 09:30 AMB (Rec: 03/05/18 15:32 AMB [email or web address]) OP Gait Assessment Gait Gait Assistance Required: Independent Assistive Devices Assistive Device None Comments Gait Comments Decreased R arm swing even with fast gait. Decreased trunk rotation. PT-OP-H Neuro Start: 03/05/18 09:28 Freq: Status: Active Protocol: Document 03/05/18 09:30 AMB (Rec: 03/05/18 15:32 AMB [email or web address]) Muscle Tone Tone Assessment 1 Manifestations of Tone Resting Tremors PT-OP-J Posture/Palpation/Skin Start: 03/05/18 09:28 Freq: Status: Active Protocol: Document 03/05/18 09:30 AMB (Rec: 03/05/18 15:32 AMB [email or web address]) Posture Evaluation Position Standing Evaluation View Lateral Head/C-Spine Posture Forward Head PT-OP-K Range of Motion Start: 03/05/18 09:28 Freq: Status: Active Protocol: Document 03/05/18 09:30 AMB (Rec: 03/05/18 15:32 AMB [email or web address]) Shoulder Goniometric Range of Motion Shoulder Measured in Degrees L Testing Position Sitting Flexion 150 R Testing Position Sitting Flexion 160 PT-OP-M Strength Start: 03/05/18 09:28 Freq: Status: Active Protocol: Document 03/05/18 09:30 AMB (Rec: 03/05/18 15:32 AMB [email or web address]) Hip Strength Hip Manual Muscle Testing Right Flexion (L2) 4 Good Extension (S1) 4 Good Abduction 4 Good Adduction 4 Good Left Flexion (L2) 4+ Good+ Extension (S1) 4+ Good+ Abduction 4+ Good+ Adduction 4+ Good+ Knee Strength Knee Manual Muscle Testing Left Flexion (S2) 5 Normal Extension (L3) 5 Normal R Flexion (S2) 5 Normal Extension (L3) 5 Normal Ankle/Foot Strength Ankle and Foot Manual Muscle Testing Right Dorsiflexion (L4) 4+ Good+ Plantarflexion (S1) 4+ Good+ Left Dorsiflexion (L4) 4+ Good+ Plantarflexion (S1) 4+ Good+ PT-OP-Q Treatments Start: 03/05/18 09:28 Freq: Status: Active Protocol: Document 03/12/18 09:29 AMB (Rec: 03/12/18 12:58 AMB [email or web address]) Therapeutic Exercises Supine Exercises 2 Supine Exercise Name hamstring stretch Reps/Minutes 30 sec x 2 1 Supine Exercise Name hip flexor stretch Reps/Minutes 30 sec x 2 Sitting Exercises 2 Sitting Exercise Name seated rotation with reach Side bilateral Reps/Minutes 10 1 Sitting Exercise Name forward flexion, then seated shoulder horizontal abduction Side bilateral Reps/Minutes 10 Comments added headturns Standing Exercises 4 Standing Exercise Name wall posture Comments with shoulder abduction 3 Standing Exercise Name theraband shoulder extension Side bilateral Resistance 3 Reps/Minutes 2 x 15 2 Standing Exercise Name calf stretch Side bilateral Equipment Used JOSEPH 1 Standing Exercise Name pec stretch Side bilateral Neuro Re-Education Treatment Balance Activities 6 Details 3 step SLS HT Reps/Duration 5 min 5 Details Backward stepping Reps/Duration 12 each 4 Details Lateral stepping Reps/Duration 12 each 3 Details Forward stepping Reps/Duration 12 each 2 Details WBOS trunk rotation Surface firm Reps/Duration 12 each side 1 Details Stride stance weightshifting with alternating UE movement Surface firm Reps/Duration 12 each side PT-OP-T Assessment and Plan Start: 03/05/18 09:28 Freq: Status: Active Protocol: Document 03/12/18 09:29 AMB (Rec: 03/12/18 12:58 AMB [email or web address]) Physical Therapy Assessment Assessment Summary Assessment Pt with difficulty with single leg stance and head turns, maintaining good posture with sls. Physical Therapy Plan Next Visit Focus/Plan Next Visit Plan progress dynamic balance exercises
--- NOTE | 2018-03-14 07:12 | PT.OTN ---
Current Diagnoses Parkinson's disease (03/13/18) Physical Therapy Treatment Note PT-OP-A Visit Information Start: 03/05/18 09:28 Freq: Status: Active Protocol: Document 03/13/18 09:30 AMB (Rec: 03/13/18 13:00 AMB [id number]) Out-Patient Physical Therapy Visit Information Visit Information Visit Type Treatment Note Visit Start Time 09:30 Visit Stop Time 10:30 Total Visit Minutes 60 Visit Number 6 Evaluation Information Evaluation Date 03/05/18 PT-OP-B Current Condition Start: 03/05/18 09:28 Freq: Status: Active Protocol: Document 03/05/18 09:30 AMB (Rec: 03/05/18 11:49 AMB [email or web address]) Current Condition History of Current Condition Current Complaints R hand tremor, decreased gait speed History of Current Condition The patient notes Parkinson's diagnosis 3.5 years ago. His main symptom is R hand tremor. He is left handed. His father and brother have also been diagnosed with Parkinson' s. Prior Functional Status Baseline Function- ADL's Independent Baseline Function- Mobility Independent Current Functional Impairments (Reported) Functional Limitations- ADL's Increased time to get belt on. Decreased gait speed. Personal Factors Other Personal Factors That May Effect Pacemaker Therapy/Recovery PT-OP-C Subjective Start: 03/05/18 09:28 Freq: Status: Active Protocol: Document 03/13/18 09:30 AMB (Rec: 03/13/18 13:02 AMB [email or web address]) OP-PT Subjective Patient Comments Patient Comments Pt states it was quite doing his yardwork yesterday which made it more difficult, he has been enjoying his stretches. PT-OP-D Balance Start: 03/05/18 09:28 Freq: Status: Active Protocol: Document 03/05/18 09:30 AMB (Rec: 03/05/18 11:57 AMB [email or web address]) Balance Tests Romberg Romberg steps after 10 seconds Single Limb Standing Single Limb- Right 15 seconds Single Limb- Left 15 seconds Semi-Tandem Standing Semi-Tandem Standing Balance with head turns and eyes closed increased sway but able to perform PT-OP-E Functional Tests Start: 03/05/18 09:28 Freq: Status: Active Protocol: Document 03/05/18 09:30 AMB (Rec: 03/05/18 15:32 AMB [email or web address]) Functional Tests 6 Minute Walk Test Distance 1858 feet Device Used none Five Times Sit to Stand Test Score 8 seconds PT-OP-G Mobility & Gait Start: 03/05/18 09:28 Freq: Status: Active Protocol: Document 03/05/18 09:30 AMB (Rec: 03/05/18 15:32 AMB [email or web address]) OP Gait Assessment Gait Gait Assistance Required: Independent Assistive Devices Assistive Device None Comments Gait Comments Decreased R arm swing even with fast gait. Decreased trunk rotation. PT-OP-H Neuro Start: 03/05/18 09:28 Freq: Status: Active Protocol: Document 03/05/18 09:30 AMB (Rec: 03/05/18 15:32 AMB [email or web address]) Muscle Tone Tone Assessment 1 Manifestations of Tone Resting Tremors PT-OP-J Posture/Palpation/Skin Start: 03/05/18 09:28 Freq: Status: Active Protocol: Document 03/05/18 09:30 AMB (Rec: 03/05/18 15:32 AMB [email or web address]) Posture Evaluation Position Standing Evaluation View Lateral Head/C-Spine Posture Forward Head PT-OP-K Range of Motion Start: 03/05/18 09:28 Freq: Status: Active Protocol: Document 03/05/18 09:30 AMB (Rec: 03/05/18 15:32 AMB [email or web address]) Shoulder Goniometric Range of Motion Shoulder Measured in Degrees L Testing Position Sitting Flexion 150 R Testing Position Sitting Flexion 160 PT-OP-M Strength Start: 03/05/18 09:28 Freq: Status: Active Protocol: Document 03/05/18 09:30 AMB (Rec: 03/05/18 15:32 AMB [email or web address]) Hip Strength Hip Manual Muscle Testing Right Flexion (L2) 4 Good Extension (S1) 4 Good Abduction 4 Good Adduction 4 Good Left Flexion (L2) 4+ Good+ Extension (S1) 4+ Good+ Abduction 4+ Good+ Adduction 4+ Good+ Knee Strength Knee Manual Muscle Testing Left Flexion (S2) 5 Normal Extension (L3) 5 Normal R Flexion (S2) 5 Normal Extension (L3) 5 Normal Ankle/Foot Strength Ankle and Foot Manual Muscle Testing Right Dorsiflexion (L4) 4+ Good+ Plantarflexion (S1) 4+ Good+ Left Dorsiflexion (L4) 4+ Good+ Plantarflexion (S1) 4+ Good+ PT-OP-Q Treatments Start: 03/05/18 09:28 Freq: Status: Active Protocol: Document 03/13/18 09:30 AMB (Rec: 03/14/18 07:12 AMB [email or web address]) Therapeutic Exercises Supine Exercises 3 Supine Exercise Name piriformis stretch Reps/Minutes 30 sec x 2 2 Supine Exercise Name hamstring stretch Reps/Minutes 30 sec x 2 Sitting Exercises 2 Sitting Exercise Name seated rotation with reach Side bilateral Reps/Minutes 10 1 Sitting Exercise Name forward flexion, then seated shoulder horizontal abduction Side bilateral Reps/Minutes 10 Comments added headturns Standing Exercises 4 Standing Exercise Name wall posture Comments with shoulder abduction 3 Standing Exercise Name theraband shoulder extension Side bilateral Resistance 3 Reps/Minutes 2 x 15 2 Standing Exercise Name calf stretch Side bilateral Equipment Used JOSEPH Neuro Re-Education Treatment Balance Activities 6 Details 3 step SLS HT Reps/Duration 5 min 5 Details Backward stepping Reps/Duration 12 each 4 Details Lateral stepping Reps/Duration 12 each 3 Details Forward stepping Reps/Duration 12 each 2 Details WBOS trunk rotation Surface firm Reps/Duration 12 each side 1 Details Stride stance weightshifting with alternating UE movement Surface firm Reps/Duration 12 each side PT-OP-T Assessment and Plan Start: 03/05/18 09:28 Freq: Status: Active Protocol: Document 03/13/18 09:30 AMB (Rec: 03/14/18 07:12 AMB [email or web address]) Physical Therapy Assessment Assessment Summary Assessment Pt tolerating exercises well, dynamic balance should improve . Physical Therapy Plan Next Visit Focus/Plan Next Visit Plan Progress gait and higher level balance activities
--- NOTE | 2018-03-15 13:06 | PT.OTN ---
Current Diagnoses Parkinson's disease (03/15/18) Physical Therapy Treatment Note PT-OP-A Visit Information Start: 03/05/18 09:28 Freq: Status: Active Protocol: Document 03/15/18 09:30 AMB (Rec: 03/15/18 13:06 AMB [email or web address]) Out-Patient Physical Therapy Visit Information Visit Information Visit Type Treatment Note Visit Start Time 09:30 Visit Stop Time 10:30 Total Visit Minutes 60 Visit Number 8 Evaluation Information Evaluation Date 03/05/18 PT-OP-B Current Condition Start: 03/05/18 09:28 Freq: Status: Active Protocol: Document 03/05/18 09:30 AMB (Rec: 03/05/18 11:49 AMB [email or web address]) Current Condition History of Current Condition Current Complaints R hand tremor, decreased gait speed History of Current Condition The patient notes Parkinson's diagnosis 3.5 years ago. His main symptom is R hand tremor. He is left handed. His father and brother have also been diagnosed with Parkinson' s. Prior Functional Status Baseline Function- ADL's Independent Baseline Function- Mobility Independent Current Functional Impairments (Reported) Functional Limitations- ADL's Increased time to get belt on. Decreased gait speed. Personal Factors Other Personal Factors That May Effect Pacemaker Therapy/Recovery PT-OP-C Subjective Start: 03/05/18 09:28 Freq: Status: Active Protocol: Document 03/15/18 09:30 AMB (Rec: 03/15/18 13:06 AMB [email or web address]) OP-PT Subjective Patient Comments Patient Comments Pt is going to be using the wheelbarrow to manage gravel, he has tried icing his shoulder. PT-OP-D Balance Start: 03/05/18 09:28 Freq: Status: Active Protocol: Document 03/05/18 09:30 AMB (Rec: 03/05/18 11:57 AMB [email or web address]) Balance Tests Romberg Romberg steps after 10 seconds Single Limb Standing Single Limb- Right 15 seconds Single Limb- Left 15 seconds Semi-Tandem Standing Semi-Tandem Standing Balance with head turns and eyes closed increased sway but able to perform PT-OP-E Functional Tests Start: 03/05/18 09:28 Freq: Status: Active Protocol: Document 03/05/18 09:30 AMB (Rec: 03/05/18 15:32 AMB [email or web address]) Functional Tests 6 Minute Walk Test Distance 1858 feet Device Used none Five Times Sit to Stand Test Score 8 seconds PT-OP-G Mobility & Gait Start: 03/05/18 09:28 Freq: Status: Active Protocol: Document 03/05/18 09:30 AMB (Rec: 03/05/18 15:32 AMB [email or web address]) OP Gait Assessment Gait Gait Assistance Required: Independent Assistive Devices Assistive Device None Comments Gait Comments Decreased R arm swing even with fast gait. Decreased trunk rotation. PT-OP-H Neuro Start: 03/05/18 09:28 Freq: Status: Active Protocol: Document 03/05/18 09:30 AMB (Rec: 03/05/18 15:32 AMB [email or web address]) Muscle Tone Tone Assessment 1 Manifestations of Tone Resting Tremors PT-OP-J Posture/Palpation/Skin Start: 03/05/18 09:28 Freq: Status: Active Protocol: Document 03/05/18 09:30 AMB (Rec: 03/05/18 15:32 AMB [email or web address]) Posture Evaluation Position Standing Evaluation View Lateral Head/C-Spine Posture Forward Head PT-OP-K Range of Motion Start: 03/05/18 09:28 Freq: Status: Active Protocol: Document 03/05/18 09:30 AMB (Rec: 03/05/18 15:32 AMB [email or web address]) Shoulder Goniometric Range of Motion Shoulder Measured in Degrees L Testing Position Sitting Flexion 150 R Testing Position Sitting Flexion 160 PT-OP-M Strength Start: 03/05/18 09:28 Freq: Status: Active Protocol: Document 03/05/18 09:30 AMB (Rec: 03/05/18 15:32 AMB [email or web address]) Hip Strength Hip Manual Muscle Testing Right Flexion (L2) 4 Good Extension (S1) 4 Good Abduction 4 Good Adduction 4 Good Left Flexion (L2) 4+ Good+ Extension (S1) 4+ Good+ Abduction 4+ Good+ Adduction 4+ Good+ Knee Strength Knee Manual Muscle Testing Left Flexion (S2) 5 Normal Extension (L3) 5 Normal R Flexion (S2) 5 Normal Extension (L3) 5 Normal Ankle/Foot Strength Ankle and Foot Manual Muscle Testing Right Dorsiflexion (L4) 4+ Good+ Plantarflexion (S1) 4+ Good+ Left Dorsiflexion (L4) 4+ Good+ Plantarflexion (S1) 4+ Good+ PT-OP-Q Treatments Start: 03/05/18 09:28 Freq: Status: Active Protocol: Document 03/15/18 09:30 AMB (Rec: 03/15/18 13:02 AMB [email or web address]) Gym Equipment Shuttle Balance 1 Details WBOS, RED Reps/Duration 5 min Comments forward and lateral, EO, HT Therapeutic Exercises Supine Exercises 3 Supine Exercise Name piriformis stretch Reps/Minutes 30 sec x 2 2 Supine Exercise Name hamstring stretch Reps/Minutes 30 sec x 2 1 Supine Exercise Name hip flexor stretch Reps/Minutes 30 sec x 2 Sitting Exercises 2 Sitting Exercise Name seated rotation with reach Side bilateral Reps/Minutes 10 1 Sitting Exercise Name forward flexion, then seated shoulder horizontal abduction Side bilateral Reps/Minutes 10 Comments added headturns Standing Exercises 3 Standing Exercise Name theraband shoulder extension Side bilateral Resistance 3 Reps/Minutes 2 x 15 Neuro Re-Education Treatment Balance Activities 6 Details 3 step SLS HT Reps/Duration 5 min 5 Details Backward stepping Reps/Duration 12 each 4 Details Lateral stepping Reps/Duration 12 each 3 Details Forward stepping Reps/Duration 12 each 2 Details WBOS trunk rotation Surface firm Reps/Duration 12 each side 1 Details Stride stance weightshifting with alternating UE movement Surface firm Reps/Duration 12 each side PT-OP-T Assessment and Plan Start: 03/05/18 09:28 Freq: Status: Active Protocol: Document 03/15/18 09:30 AMB (Rec: 03/15/18 13:02 AMB [email or web address]) Physical Therapy Assessment Assessment Summary Assessment Pt continuing to improve awareness of increasing amplitude of R UE. Physical Therapy Plan Next Visit Focus/Plan Next Visit Plan Follow up on body mechanics.
--- NOTE | 2018-03-19 15:29 | PT.OTN ---
Current Diagnoses Parkinson's disease (03/19/18) Physical Therapy Treatment Note PT-OP-A Visit Information Start: 03/05/18 09:28 Freq: Status: Active Protocol: Document 03/19/18 09:30 AMB (Rec: 03/19/18 12:58 AMB [email or web address]) Out-Patient Physical Therapy Visit Information Visit Information Visit Type Treatment Note Visit Start Time 09:30 Visit Stop Time 10:30 Total Visit Minutes 60 Visit Number 9 Evaluation Information Evaluation Date 03/05/18 PT-OP-B Current Condition Start: 03/05/18 09:28 Freq: Status: Active Protocol: Document 03/05/18 09:30 AMB (Rec: 03/05/18 11:49 AMB [email or web address]) Current Condition History of Current Condition Current Complaints R hand tremor, decreased gait speed History of Current Condition The patient notes Parkinson's diagnosis 3.5 years ago. His main symptom is R hand tremor. He is left handed. His father and brother have also been diagnosed with Parkinson' s. Prior Functional Status Baseline Function- ADL's Independent Baseline Function- Mobility Independent Current Functional Impairments (Reported) Functional Limitations- ADL's Increased time to get belt on. Decreased gait speed. Personal Factors Other Personal Factors That May Effect Pacemaker Therapy/Recovery PT-OP-C Subjective Start: 03/05/18 09:28 Freq: Status: Active Protocol: Document 03/19/18 09:30 AMB (Rec: 03/19/18 12:59 AMB [email or web address]) OP-PT Subjective Patient Comments Patient Comments Pt states ice is helping with his arm, stretches feel good in the evening. PT-OP-D Balance Start: 03/05/18 09:28 Freq: Status: Active Protocol: Document 03/05/18 09:30 AMB (Rec: 03/05/18 11:57 AMB [email or web address]) Balance Tests Romberg Romberg steps after 10 seconds Single Limb Standing Single Limb- Right 15 seconds Single Limb- Left 15 seconds Semi-Tandem Standing Semi-Tandem Standing Balance with head turns and eyes closed increased sway but able to perform PT-OP-E Functional Tests Start: 03/05/18 09:28 Freq: Status: Active Protocol: Document 03/05/18 09:30 AMB (Rec: 03/05/18 15:32 AMB [email or web address]) Functional Tests 6 Minute Walk Test Distance 1858 feet Device Used none Five Times Sit to Stand Test Score 8 seconds PT-OP-G Mobility & Gait Start: 03/05/18 09:28 Freq: Status: Active Protocol: Document 03/05/18 09:30 AMB (Rec: 03/05/18 15:32 AMB [email or web address]) OP Gait Assessment Gait Gait Assistance Required: Independent Assistive Devices Assistive Device None Comments Gait Comments Decreased R arm swing even with fast gait. Decreased trunk rotation. PT-OP-H Neuro Start: 03/05/18 09:28 Freq: Status: Active Protocol: Document 03/05/18 09:30 AMB (Rec: 03/05/18 15:32 AMB [email or web address]) Muscle Tone Tone Assessment 1 Manifestations of Tone Resting Tremors PT-OP-J Posture/Palpation/Skin Start: 03/05/18 09:28 Freq: Status: Active Protocol: Document 03/05/18 09:30 AMB (Rec: 03/05/18 15:32 AMB [email or web address]) Posture Evaluation Position Standing Evaluation View Lateral Head/C-Spine Posture Forward Head PT-OP-K Range of Motion Start: 03/05/18 09:28 Freq: Status: Active Protocol: Document 03/05/18 09:30 AMB (Rec: 03/05/18 15:32 AMB [email or web address]) Shoulder Goniometric Range of Motion Shoulder Measured in Degrees L Testing Position Sitting Flexion 150 R Testing Position Sitting Flexion 160 PT-OP-M Strength Start: 03/05/18 09:28 Freq: Status: Active Protocol: Document 03/05/18 09:30 AMB (Rec: 03/05/18 15:32 AMB [email or web address]) Hip Strength Hip Manual Muscle Testing Right Flexion (L2) 4 Good Extension (S1) 4 Good Abduction 4 Good Adduction 4 Good Left Flexion (L2) 4+ Good+ Extension (S1) 4+ Good+ Abduction 4+ Good+ Adduction 4+ Good+ Knee Strength Knee Manual Muscle Testing Left Flexion (S2) 5 Normal Extension (L3) 5 Normal R Flexion (S2) 5 Normal Extension (L3) 5 Normal Ankle/Foot Strength Ankle and Foot Manual Muscle Testing Right Dorsiflexion (L4) 4+ Good+ Plantarflexion (S1) 4+ Good+ Left Dorsiflexion (L4) 4+ Good+ Plantarflexion (S1) 4+ Good+ PT-OP-Q Treatments Start: 03/05/18 09:28 Freq: Status: Active Protocol: Document 03/19/18 09:30 AMB (Rec: 03/19/18 15:29 AMB [email or web address]) Therapeutic Exercises Supine Exercises 3 Supine Exercise Name piriformis stretch Reps/Minutes 30 sec x 2 2 Supine Exercise Name hamstring stretch Reps/Minutes 30 sec x 2 1 Supine Exercise Name hip flexor stretch Reps/Minutes 30 sec x 2 Sitting Exercises 2 Sitting Exercise Name seated rotation with reach Side bilateral Reps/Minutes 10 1 Sitting Exercise Name forward flexion, then seated shoulder horizontal abduction Side bilateral Reps/Minutes 10 Comments added headturns Standing Exercises 3 Standing Exercise Name theraband shoulder extension Side bilateral Resistance 3 Reps/Minutes 2 x 15 Neuro Re-Education Treatment Balance Activities 6 Details 3 step SLS HT Reps/Duration 5 min 5 Details Backward stepping Reps/Duration 12 each 4 Details Lateral stepping Reps/Duration 12 each 3 Details Forward stepping Reps/Duration 12 each 2 Details WBOS trunk rotation Surface firm Reps/Duration 12 each side 1 Details Stride stance weightshifting with alternating UE movement Surface firm Reps/Duration 12 each side PT-OP-T Assessment and Plan Start: 03/05/18 09:28 Freq: Status: Active Protocol: Document 03/19/18 09:30 AMB (Rec: 03/19/18 15:29 AMB [email or web address]) Physical Therapy Assessment Assessment Summary Assessment Pt is doing HEP, but continues to notice tightness in LEs. Physical Therapy Plan Next Visit Focus/Plan Next Visit Plan Plan to progress LE active ROM exercises to make more challenging. Please Sign and Return: I have reviewed this Plan of Care and certify that the skilled therapy services above are required to meet the patient???s needs. Physician Signature Date Printed Name and Credentials Clinical Instructor Signature Printed Name and Credentials
--- NOTE | 2018-03-20 12:55 | PT.OTN ---
Current Diagnoses Parkinson's disease (03/20/18) Physical Therapy Treatment Note PT-OP-A Visit Information Start: 03/05/18 09:28 Freq: Status: Active Protocol: Document 03/20/18 09:30 AMB (Rec: 03/20/18 09:30 AMB [id number]) Out-Patient Physical Therapy Visit Information Visit Information Visit Type Treatment Note Visit Start Time 09:30 Visit Stop Time 10:30 Total Visit Minutes 60 Visit Number 10 Evaluation Information Evaluation Date 03/05/18 PT-OP-B Current Condition Start: 03/05/18 09:28 Freq: Status: Active Protocol: Document 03/05/18 09:30 AMB (Rec: 03/05/18 11:49 AMB [email or web address]) Current Condition History of Current Condition Current Complaints R hand tremor, decreased gait speed History of Current Condition The patient notes Parkinson's diagnosis 3.5 years ago. His main symptom is R hand tremor. He is left handed. His father and brother have also been diagnosed with Parkinson' s. Prior Functional Status Baseline Function- ADL's Independent Baseline Function- Mobility Independent Current Functional Impairments (Reported) Functional Limitations- ADL's Increased time to get belt on. Decreased gait speed. Personal Factors Other Personal Factors That May Effect Pacemaker Therapy/Recovery PT-OP-C Subjective Start: 03/05/18 09:28 Freq: Status: Active Protocol: Document 03/20/18 09:30 AMB (Rec: 03/20/18 09:59 AMB [id number]) OP-PT Subjective Patient Comments Patient Comments Pt notes he feels better when he has not been doing as much yardwork. PT-OP-D Balance Start: 03/05/18 09:28 Freq: Status: Active Protocol: Document 03/05/18 09:30 AMB (Rec: 03/05/18 11:57 AMB [email or web address]) Balance Tests Romberg Romberg steps after 10 seconds Single Limb Standing Single Limb- Right 15 seconds Single Limb- Left 15 seconds Semi-Tandem Standing Semi-Tandem Standing Balance with head turns and eyes closed increased sway but able to perform PT-OP-E Functional Tests Start: 03/05/18 09:28 Freq: Status: Active Protocol: Document 03/05/18 09:30 AMB (Rec: 03/05/18 15:32 AMB [email or web address]) Functional Tests 6 Minute Walk Test Distance 1858 feet Device Used none Five Times Sit to Stand Test Score 8 seconds PT-OP-G Mobility & Gait Start: 03/05/18 09:28 Freq: Status: Active Protocol: Document 03/05/18 09:30 AMB (Rec: 03/05/18 15:32 AMB [email or web address]) OP Gait Assessment Gait Gait Assistance Required: Independent Assistive Devices Assistive Device None Comments Gait Comments Decreased R arm swing even with fast gait. Decreased trunk rotation. PT-OP-H Neuro Start: 03/05/18 09:28 Freq: Status: Active Protocol: Document 03/05/18 09:30 AMB (Rec: 03/05/18 15:32 AMB [email or web address]) Muscle Tone Tone Assessment 1 Manifestations of Tone Resting Tremors PT-OP-J Posture/Palpation/Skin Start: 03/05/18 09:28 Freq: Status: Active Protocol: Document 03/05/18 09:30 AMB (Rec: 03/05/18 15:32 AMB [email or web address]) Posture Evaluation Position Standing Evaluation View Lateral Head/C-Spine Posture Forward Head PT-OP-K Range of Motion Start: 03/05/18 09:28 Freq: Status: Active Protocol: Document 03/05/18 09:30 AMB (Rec: 03/05/18 15:32 AMB [email or web address]) Shoulder Goniometric Range of Motion Shoulder Measured in Degrees L Testing Position Sitting Flexion 150 R Testing Position Sitting Flexion 160 PT-OP-M Strength Start: 03/05/18 09:28 Freq: Status: Active Protocol: Document 03/05/18 09:30 AMB (Rec: 03/05/18 15:32 AMB [email or web address]) Hip Strength Hip Manual Muscle Testing Right Flexion (L2) 4 Good Extension (S1) 4 Good Abduction 4 Good Adduction 4 Good Left Flexion (L2) 4+ Good+ Extension (S1) 4+ Good+ Abduction 4+ Good+ Adduction 4+ Good+ Knee Strength Knee Manual Muscle Testing Left Flexion (S2) 5 Normal Extension (L3) 5 Normal R Flexion (S2) 5 Normal Extension (L3) 5 Normal Ankle/Foot Strength Ankle and Foot Manual Muscle Testing Right Dorsiflexion (L4) 4+ Good+ Plantarflexion (S1) 4+ Good+ Left Dorsiflexion (L4) 4+ Good+ Plantarflexion (S1) 4+ Good+ PT-OP-Q Treatments Start: 03/05/18 09:28 Freq: Status: Active Protocol: Document 03/20/18 09:30 AMB (Rec: 03/20/18 12:51 AMB [email or web address]) Gym Equipment Shuttle Balance 1 Details WBOS, RED Reps/Duration 5 min Comments mini squats Therapeutic Exercises Supine Exercises 3 Supine Exercise Name piriformis stretch Reps/Minutes 30 sec x 2 2 Supine Exercise Name hamstring stretch Reps/Minutes 30 sec x 2 1 Supine Exercise Name hip flexor stretch Reps/Minutes 30 sec x 2 Prone Exercises 1 Prone Exercise Name thread the needle Reps/Minutes 2 min Sitting Exercises 2 Sitting Exercise Name seated rotation with reach Side bilateral Reps/Minutes 10 1 Sitting Exercise Name forward flexion, then seated shoulder horizontal abduction Side bilateral Reps/Minutes 10 Comments added headturns Neuro Re-Education Treatment Balance Activities 6 Details 3 step SLS HT Reps/Duration 5 min 5 Details Backward stepping Reps/Duration 12 each 4 Details Lateral stepping Reps/Duration 12 each 3 Details Forward stepping Reps/Duration 12 each 2 Details WBOS trunk rotation Surface firm Reps/Duration 12 each side 1 Details Stride stance weightshifting with alternating UE movement Surface firm Reps/Duration 12 each side PT-OP-T Assessment and Plan Start: 03/05/18 09:28 Freq: Status: Active Protocol: Document 03/20/18 09:30 AMB (Rec: 03/20/18 12:51 AMB [email or web address]) Physical Therapy Assessment Goals 3 Impairment Functional movement Short Term Goal (STG) The patient will don and doff his belt without difficulty. STG Duration 2 weeks Senior Living Goal (LTG) The patient will put his jacket on without difficulty and without shoulder pain. LTG Duration 4 weeks 2 Impairment Balance Short Term Goal (STG) The patient will improve his eyes open single leg balance to 30 seconds bilaterally. STG Duration 2 weeks Senior Living Goal (LTG) The patient will perform yardwork for 1 hour without LOB. 1 Impairment Gait Short Term Goal (STG) The patient will ambulate with his and keep up with her speed over unevern surfaces. STG Duration 2 weeks Gas Plant Specialist Goal (LTG) The patient will increase his 6MWT to 2,000 feet. LTG Duration 4 weeks Assessment Summary Assessment Continued work on trunk rotation needed. Physical Therapy Plan Next Visit Focus/Plan Next Visit Plan Progress trunk rotation in multiple positions.
--- NOTE | 2018-03-21 11:01 | PT.OTN ---
Current Diagnoses Parkinson's disease (03/21/18) Physical Therapy Treatment Note PT-OP-A Visit Information Start: 03/05/18 09:28 Freq: Status: Active Protocol: Document 03/21/18 09:00 AMB (Rec: 03/21/18 11:01 AMB [email or web address]) Out-Patient Physical Therapy Visit Information Visit Information Visit Type Treatment Note Visit Start Time 09:30 Visit Stop Time 10:30 Total Visit Minutes 60 Visit Number 11 Evaluation Information Evaluation Date 03/05/18 PT-OP-B Current Condition Start: 03/05/18 09:28 Freq: Status: Active Protocol: Document 03/05/18 09:30 AMB (Rec: 03/05/18 11:49 AMB [email or web address]) Current Condition History of Current Condition Current Complaints R hand tremor, decreased gait speed History of Current Condition The patient notes Parkinson's diagnosis 3.5 years ago. His main symptom is R hand tremor. He is left handed. His father and brother have also been diagnosed with Parkinson' s. Prior Functional Status Baseline Function- ADL's Independent Baseline Function- Mobility Independent Current Functional Impairments (Reported) Functional Limitations- ADL's Increased time to get belt on. Decreased gait speed. Personal Factors Other Personal Factors That May Effect Pacemaker Therapy/Recovery PT-OP-C Subjective Start: 03/05/18 09:28 Freq: Status: Active Protocol: Document 03/21/18 09:00 AMB (Rec: 03/21/18 11:01 AMB [email or web address]) OP-PT Subjective Patient Comments Patient Comments Pt installed washer dryer last night so is a bit stiff from that. PT-OP-D Balance Start: 03/05/18 09:28 Freq: Status: Active Protocol: Document 03/05/18 09:30 AMB (Rec: 03/05/18 11:57 AMB [email or web address]) Balance Tests Romberg Romberg steps after 10 seconds Single Limb Standing Single Limb- Right 15 seconds Single Limb- Left 15 seconds Semi-Tandem Standing Semi-Tandem Standing Balance with head turns and eyes closed increased sway but able to perform PT-OP-E Functional Tests Start: 03/05/18 09:28 Freq: Status: Active Protocol: Document 03/05/18 09:30 AMB (Rec: 03/05/18 15:32 AMB [email or web address]) Functional Tests 6 Minute Walk Test Distance 1858 feet Device Used none Five Times Sit to Stand Test Score 8 seconds PT-OP-G Mobility & Gait Start: 03/05/18 09:28 Freq: Status: Active Protocol: Document 03/05/18 09:30 AMB (Rec: 03/05/18 15:32 AMB [email or web address]) OP Gait Assessment Gait Gait Assistance Required: Independent Assistive Devices Assistive Device None Comments Gait Comments Decreased R arm swing even with fast gait. Decreased trunk rotation. PT-OP-H Neuro Start: 03/05/18 09:28 Freq: Status: Active Protocol: Document 03/05/18 09:30 AMB (Rec: 03/05/18 15:32 AMB [email or web address]) Muscle Tone Tone Assessment 1 Manifestations of Tone Resting Tremors PT-OP-J Posture/Palpation/Skin Start: 03/05/18 09:28 Freq: Status: Active Protocol: Document 03/05/18 09:30 AMB (Rec: 03/05/18 15:32 AMB [email or web address]) Posture Evaluation Position Standing Evaluation View Lateral Head/C-Spine Posture Forward Head PT-OP-K Range of Motion Start: 03/05/18 09:28 Freq: Status: Active Protocol: Document 03/05/18 09:30 AMB (Rec: 03/05/18 15:32 AMB [email or web address]) Shoulder Goniometric Range of Motion Shoulder Measured in Degrees L Testing Position Sitting Flexion 150 R Testing Position Sitting Flexion 160 PT-OP-M Strength Start: 03/05/18 09:28 Freq: Status: Active Protocol: Document 03/05/18 09:30 AMB (Rec: 03/05/18 15:32 AMB [email or web address]) Hip Strength Hip Manual Muscle Testing Right Flexion (L2) 4 Good Extension (S1) 4 Good Abduction 4 Good Adduction 4 Good Left Flexion (L2) 4+ Good+ Extension (S1) 4+ Good+ Abduction 4+ Good+ Adduction 4+ Good+ Knee Strength Knee Manual Muscle Testing Left Flexion (S2) 5 Normal Extension (L3) 5 Normal R Flexion (S2) 5 Normal Extension (L3) 5 Normal Ankle/Foot Strength Ankle and Foot Manual Muscle Testing Right Dorsiflexion (L4) 4+ Good+ Plantarflexion (S1) 4+ Good+ Left Dorsiflexion (L4) 4+ Good+ Plantarflexion (S1) 4+ Good+ PT-OP-Q Treatments Start: 03/05/18 09:28 Freq: Status: Active Protocol: Document 03/21/18 09:00 AMB (Rec: 03/21/18 11:01 AMB [email or web address]) Therapeutic Exercises Supine Exercises 3 Supine Exercise Name piriformis stretch Reps/Minutes 30 sec x 2 2 Supine Exercise Name hamstring stretch Reps/Minutes 30 sec x 2 1 Supine Exercise Name hip flexor stretch Reps/Minutes 30 sec x 2 Sitting Exercises 2 Sitting Exercise Name seated rotation with reach Side bilateral Reps/Minutes 10 1 Sitting Exercise Name forward flexion, then seated shoulder horizontal abduction Side bilateral Reps/Minutes 10 Comments added headturns Neuro Re-Education Treatment Balance Activities 6 Details 3 step SLS HT Reps/Duration 5 min 5 Details Backward stepping Reps/Duration 12 each 4 Details Lateral stepping Reps/Duration 12 each 2 Details WBOS trunk rotation Surface firm Reps/Duration 12 each side 1 Details Stride stance weightshifting with alternating UE movement Surface firm Reps/Duration 12 each side PT-OP-T Assessment and Plan Start: 03/05/18 09:28 Freq: Status: Active Protocol: Document 03/21/18 09:00 AMB (Rec: 03/21/18 11:01 AMB [email or web address]) Physical Therapy Assessment Assessment Summary Assessment Improved rotation with slow controlled movements. Physical Therapy Plan Next Visit Focus/Plan Next Visit Plan progress resistance exercises as tolerated considering L shoulder pain. Please Sign and Return: I have reviewed this Plan of Care and certify that the skilled therapy services above are required to meet the patient???s needs. Physician Signature Date Printed Name and Credentials Clinical Instructor Signature Printed Name and Credentials
--- NOTE | 2018-03-22 12:52 | PT.OTN ---
Current Diagnoses Parkinson's disease (03/22/18) Physical Therapy Treatment Note PT-OP-A Visit Information Start: 03/05/18 09:28 Freq: Status: Active Protocol: Document 03/22/18 09:30 AMB (Rec: 03/22/18 10:29 AMB [email or web address]) Out-Patient Physical Therapy Visit Information Visit Information Visit Type Treatment Note Visit Start Time 09:30 Visit Stop Time 10:30 Total Visit Minutes 60 Visit Number 12 Evaluation Information Evaluation Date 03/05/18 PT-OP-B Current Condition Start: 03/05/18 09:28 Freq: Status: Active Protocol: Document 03/05/18 09:30 AMB (Rec: 03/05/18 11:49 AMB [email or web address]) Current Condition History of Current Condition Current Complaints R hand tremor, decreased gait speed History of Current Condition The patient notes Parkinson's diagnosis 3.5 years ago. His main symptom is R hand tremor. He is left handed. His father and brother have also been diagnosed with Parkinson' s. Prior Functional Status Baseline Function- ADL's Independent Baseline Function- Mobility Independent Current Functional Impairments (Reported) Functional Limitations- ADL's Increased time to get belt on. Decreased gait speed. Personal Factors Other Personal Factors That May Effect Pacemaker Therapy/Recovery PT-OP-C Subjective Start: 03/05/18 09:28 Freq: Status: Active Protocol: Document 03/22/18 09:30 AMB (Rec: 03/22/18 10:30 AMB [email or web address]) OP-PT Subjective Patient Comments Patient Comments The patient is enjoying his exercises, states they feel good. PT-OP-D Balance Start: 03/05/18 09:28 Freq: Status: Active Protocol: Document 03/05/18 09:30 AMB (Rec: 03/05/18 11:57 AMB [email or web address]) Balance Tests Romberg Romberg steps after 10 seconds Single Limb Standing Single Limb- Right 15 seconds Single Limb- Left 15 seconds Semi-Tandem Standing Semi-Tandem Standing Balance with head turns and eyes closed increased sway but able to perform PT-OP-E Functional Tests Start: 03/05/18 09:28 Freq: Status: Active Protocol: Document 03/05/18 09:30 AMB (Rec: 03/05/18 15:32 AMB [email or web address]) Functional Tests 6 Minute Walk Test Distance 1858 feet Device Used none Five Times Sit to Stand Test Score 8 seconds PT-OP-G Mobility & Gait Start: 03/05/18 09:28 Freq: Status: Active Protocol: Document 03/05/18 09:30 AMB (Rec: 03/05/18 15:32 AMB [email or web address]) OP Gait Assessment Gait Gait Assistance Required: Independent Assistive Devices Assistive Device None Comments Gait Comments Decreased R arm swing even with fast gait. Decreased trunk rotation. PT-OP-H Neuro Start: 03/05/18 09:28 Freq: Status: Active Protocol: Document 03/05/18 09:30 AMB (Rec: 03/05/18 15:32 AMB [email or web address]) Muscle Tone Tone Assessment 1 Manifestations of Tone Resting Tremors PT-OP-J Posture/Palpation/Skin Start: 03/05/18 09:28 Freq: Status: Active Protocol: Document 03/05/18 09:30 AMB (Rec: 03/05/18 15:32 AMB [email or web address]) Posture Evaluation Position Standing Evaluation View Lateral Head/C-Spine Posture Forward Head PT-OP-K Range of Motion Start: 03/05/18 09:28 Freq: Status: Active Protocol: Document 03/05/18 09:30 AMB (Rec: 03/05/18 15:32 AMB [email or web address]) Shoulder Goniometric Range of Motion Shoulder Measured in Degrees L Testing Position Sitting Flexion 150 R Testing Position Sitting Flexion 160 PT-OP-M Strength Start: 03/05/18 09:28 Freq: Status: Active Protocol: Document 03/05/18 09:30 AMB (Rec: 03/05/18 15:32 AMB [email or web address]) Hip Strength Hip Manual Muscle Testing Right Flexion (L2) 4 Good Extension (S1) 4 Good Abduction 4 Good Adduction 4 Good Left Flexion (L2) 4+ Good+ Extension (S1) 4+ Good+ Abduction 4+ Good+ Adduction 4+ Good+ Knee Strength Knee Manual Muscle Testing Left Flexion (S2) 5 Normal Extension (L3) 5 Normal R Flexion (S2) 5 Normal Extension (L3) 5 Normal Ankle/Foot Strength Ankle and Foot Manual Muscle Testing Right Dorsiflexion (L4) 4+ Good+ Plantarflexion (S1) 4+ Good+ Left Dorsiflexion (L4) 4+ Good+ Plantarflexion (S1) 4+ Good+ PT-OP-Q Treatments Start: 03/05/18 09:28 Freq: Status: Active Protocol: Document 03/22/18 09:30 AMB (Rec: 03/22/18 12:51 AMB [email or web address]) Gym Equipment Shuttle Balance 1 Details WBOS, RED Reps/Duration 5 min Comments stride stance a/p and m/l Therapeutic Exercises Supine Exercises 3 Supine Exercise Name piriformis stretch Reps/Minutes 30 sec x 2 2 Supine Exercise Name hamstring stretch Reps/Minutes 30 sec x 2 1 Supine Exercise Name hip flexor stretch Reps/Minutes 30 sec x 2 Sitting Exercises 2 Sitting Exercise Name seated rotation with reach Side bilateral Reps/Minutes 10 1 Sitting Exercise Name forward flexion, then seated shoulder horizontal abduction Side bilateral Reps/Minutes 10 Comments added headturns Neuro Re-Education Treatment Balance Activities 6 Details 3 step SLS HT Reps/Duration 5 min 5 Details Backward stepping Reps/Duration 12 each 4 Details Lateral stepping Reps/Duration 12 each 3 Details Forward stepping Reps/Duration 12 each 2 Details WBOS trunk rotation Surface firm Reps/Duration 12 each side 1 Details Stride stance weightshifting with alternating UE movement Surface firm Reps/Duration 12 each side PT-OP-T Assessment and Plan Start: 03/05/18 09:28 Freq: Status: Active Protocol: Document 03/22/18 09:30 AMB (Rec: 03/22/18 12:51 AMB [email or web address]) Physical Therapy Assessment Goals 3 Impairment Functional movement Short Term Goal (STG) The patient will don and doff his belt without difficulty. STG Duration 2 weeks Senior Care Goal (LTG) The patient will put his jacket on without difficulty and without shoulder pain. LTG Duration 4 weeks 2 Impairment Balance Short Term Goal (STG) The patient will improve his eyes open single leg balance to 30 seconds bilaterally. STG Duration 2 weeks Sail Repair Person Goal (LTG) The patient will perform yardwork for 1 hour without LOB. 1 Impairment Gait Short Term Goal (STG) The patient will ambulate with his and keep up with her speed over unevern surfaces. STG Duration 2 weeks Senior Care Goal (LTG) The patient will increase his 6MWT to 2,000 feet. LTG Duration 4 weeks Assessment Summary Assessment L UE pain flared due to biking yesterday Physical Therapy Plan Next Visit Focus/Plan Next Visit Plan progress resistance next visit if tolerated with L UE without decreasing amplitude of movement Please Sign and Return: I have reviewed this Plan of Care and certify that the skilled therapy services above are required to meet the patient???s needs. Physician Signature Date Printed Name and Credentials Clinical Instructor Signature Printed Name and Credentials
--- NOTE | 2018-03-27 12:57 | PT.OTN ---
Current Diagnoses Parkinson's disease (03/27/18) Physical Therapy Treatment Note PT-OP-A Visit Information Start: 03/05/18 09:28 Freq: Status: Active Protocol: Document 03/27/18 09:30 AMB (Rec: 03/27/18 12:57 AMB [email or web address]) Out-Patient Physical Therapy Visit Information Visit Information Visit Type Treatment Note Visit Start Time 09:30 Visit Stop Time 10:30 Total Visit Minutes 60 Visit Number 13 Evaluation Information Evaluation Date 03/05/18 PT-OP-B Current Condition Start: 03/05/18 09:28 Freq: Status: Active Protocol: Document 03/05/18 09:30 AMB (Rec: 03/05/18 11:49 AMB [email or web address]) Current Condition History of Current Condition Current Complaints R hand tremor, decreased gait speed History of Current Condition The patient notes Parkinson's diagnosis 3.5 years ago. His main symptom is R hand tremor. He is left handed. His father and brother have also been diagnosed with Parkinson' s. Prior Functional Status Baseline Function- ADL's Independent Baseline Function- Mobility Independent Current Functional Impairments (Reported) Functional Limitations- ADL's Increased time to get belt on. Decreased gait speed. Personal Factors Other Personal Factors That May Effect Pacemaker Therapy/Recovery PT-OP-C Subjective Start: 03/05/18 09:28 Freq: Status: Active Protocol: Document 03/27/18 09:30 AMB (Rec: 03/27/18 12:57 AMB [email or web address]) OP-PT Subjective Patient Comments Patient Comments The patient was able to do his yardwork over the weekend and the shoulder isn't too painful. PT-OP-D Balance Start: 03/05/18 09:28 Freq: Status: Active Protocol: Document 03/05/18 09:30 AMB (Rec: 03/05/18 11:57 AMB [email or web address]) Balance Tests Romberg Romberg steps after 10 seconds Single Limb Standing Single Limb- Right 15 seconds Single Limb- Left 15 seconds Semi-Tandem Standing Semi-Tandem Standing Balance with head turns and eyes closed increased sway but able to perform PT-OP-E Functional Tests Start: 03/05/18 09:28 Freq: Status: Active Protocol: Document 03/05/18 09:30 AMB (Rec: 03/05/18 15:32 AMB [email or web address]) Functional Tests 6 Minute Walk Test Distance 1858 feet Device Used none Five Times Sit to Stand Test Score 8 seconds PT-OP-G Mobility & Gait Start: 03/05/18 09:28 Freq: Status: Active Protocol: Document 03/05/18 09:30 AMB (Rec: 03/05/18 15:32 AMB [email or web address]) OP Gait Assessment Gait Gait Assistance Required: Independent Assistive Devices Assistive Device None Comments Gait Comments Decreased R arm swing even with fast gait. Decreased trunk rotation. PT-OP-H Neuro Start: 03/05/18 09:28 Freq: Status: Active Protocol: Document 03/05/18 09:30 AMB (Rec: 03/05/18 15:32 AMB [email or web address]) Muscle Tone Tone Assessment 1 Manifestations of Tone Resting Tremors PT-OP-J Posture/Palpation/Skin Start: 03/05/18 09:28 Freq: Status: Active Protocol: Document 03/05/18 09:30 AMB (Rec: 03/05/18 15:32 AMB [email or web address]) Posture Evaluation Position Standing Evaluation View Lateral Head/C-Spine Posture Forward Head PT-OP-K Range of Motion Start: 03/05/18 09:28 Freq: Status: Active Protocol: Document 03/05/18 09:30 AMB (Rec: 03/05/18 15:32 AMB [email or web address]) Shoulder Goniometric Range of Motion Shoulder Measured in Degrees L Testing Position Sitting Flexion 150 R Testing Position Sitting Flexion 160 PT-OP-M Strength Start: 03/05/18 09:28 Freq: Status: Active Protocol: Document 03/05/18 09:30 AMB (Rec: 03/05/18 15:32 AMB [email or web address]) Hip Strength Hip Manual Muscle Testing Right Flexion (L2) 4 Good Extension (S1) 4 Good Abduction 4 Good Adduction 4 Good Left Flexion (L2) 4+ Good+ Extension (S1) 4+ Good+ Abduction 4+ Good+ Adduction 4+ Good+ Knee Strength Knee Manual Muscle Testing Left Flexion (S2) 5 Normal Extension (L3) 5 Normal R Flexion (S2) 5 Normal Extension (L3) 5 Normal Ankle/Foot Strength Ankle and Foot Manual Muscle Testing Right Dorsiflexion (L4) 4+ Good+ Plantarflexion (S1) 4+ Good+ Left Dorsiflexion (L4) 4+ Good+ Plantarflexion (S1) 4+ Good+ PT-OP-Q Treatments Start: 03/05/18 09:28 Freq: Status: Active Protocol: Document 03/27/18 09:30 AMB (Rec: 03/27/18 12:57 AMB [email or web address]) Therapeutic Exercises Supine Exercises 3 Supine Exercise Name piriformis stretch Reps/Minutes 30 sec x 2 2 Supine Exercise Name hamstring stretch Reps/Minutes 30 sec x 2 1 Supine Exercise Name hip flexor stretch Reps/Minutes 30 sec x 2 Prone Exercises 1 Prone Exercise Name thread the needle Reps/Minutes 2 min Sitting Exercises 2 Sitting Exercise Name seated rotation with reach Side bilateral Reps/Minutes 10 1 Sitting Exercise Name forward flexion, then seated shoulder horizontal abduction Side bilateral Reps/Minutes 10 Comments added headturns Neuro Re-Education Treatment Balance Activities 6 Details 3 step SLS HT Reps/Duration 5 min 5 Details Backward stepping Reps/Duration 12 each 4 Details Lateral stepping Reps/Duration 12 each 3 Details Forward stepping Reps/Duration 12 each 2 Details WBOS trunk rotation Surface firm Reps/Duration 12 each side 1 Details Stride stance weightshifting with alternating UE movement Surface firm Reps/Duration 12 each side PT-OP-T Assessment and Plan Start: 03/05/18 09:28 Freq: Status: Active Protocol: Document 03/27/18 09:30 AMB (Rec: 03/27/18 12:57 AMB [email or web address]) Physical Therapy Assessment Assessment Summary Assessment Better L UE pain today, rotation remains difficult. Physical Therapy Plan Next Visit Focus/Plan Next Visit Plan progress resistance next visit if tolerated with L UE without decreasing amplitude of movement Please Sign and Return: I have reviewed this Plan of Care and certify that the skilled therapy services above are required to meet the patient???s needs. Physician Signature Date Printed Name and Credentials Clinical Instructor Signature Printed Name and Credentials
--- NOTE | 2018-03-28 11:10 | PT.OTN ---
Current Diagnoses Parkinson's disease (03/28/18) Physical Therapy Treatment Note PT-OP-A Visit Information Start: 03/05/18 09:28 Freq: Status: Active Protocol: Document 03/28/18 09:30 AMB (Rec: 03/28/18 10:31 AMB [id number]) Out-Patient Physical Therapy Visit Information Visit Information Visit Type Treatment Note Visit Start Time 09:30 Visit Stop Time 10:30 Total Visit Minutes 60 Visit Number 14 Evaluation Information Evaluation Date 03/05/18 PT-OP-B Current Condition Start: 03/05/18 09:28 Freq: Status: Active Protocol: Document 03/05/18 09:30 AMB (Rec: 03/05/18 11:49 AMB [email or web address]) Current Condition History of Current Condition Current Complaints R hand tremor, decreased gait speed History of Current Condition The patient notes Parkinson's diagnosis 3.5 years ago. His main symptom is R hand tremor. He is left handed. His father and brother have also been diagnosed with Parkinson' s. Prior Functional Status Baseline Function- ADL's Independent Baseline Function- Mobility Independent Current Functional Impairments (Reported) Functional Limitations- ADL's Increased time to get belt on. Decreased gait speed. Personal Factors Other Personal Factors That May Effect Pacemaker Therapy/Recovery PT-OP-C Subjective Start: 03/05/18 09:28 Freq: Status: Active Protocol: Document 03/28/18 09:30 AMB (Rec: 03/28/18 10:31 AMB [id number]) OP-PT Subjective Patient Comments Patient Comments Pt reports he is doing well, getting ready for his trip to [place]. PT-OP-D Balance Start: 03/05/18 09:28 Freq: Status: Active Protocol: Document 03/05/18 09:30 AMB (Rec: 03/05/18 11:57 AMB [email or web address]) Balance Tests Romberg Romberg steps after 10 seconds Single Limb Standing Single Limb- Right 15 seconds Single Limb- Left 15 seconds Semi-Tandem Standing Semi-Tandem Standing Balance with head turns and eyes closed increased sway but able to perform PT-OP-E Functional Tests Start: 03/05/18 09:28 Freq: Status: Active Protocol: Document 03/05/18 09:30 AMB (Rec: 03/05/18 15:32 AMB [email or web address]) Functional Tests 6 Minute Walk Test Distance 1858 feet Device Used none Five Times Sit to Stand Test Score 8 seconds PT-OP-G Mobility & Gait Start: 03/05/18 09:28 Freq: Status: Active Protocol: Document 03/05/18 09:30 AMB (Rec: 03/05/18 15:32 AMB [email or web address]) OP Gait Assessment Gait Gait Assistance Required: Independent Assistive Devices Assistive Device None Comments Gait Comments Decreased R arm swing even with fast gait. Decreased trunk rotation. PT-OP-H Neuro Start: 03/05/18 09:28 Freq: Status: Active Protocol: Document 03/05/18 09:30 AMB (Rec: 03/05/18 15:32 AMB [email or web address]) Muscle Tone Tone Assessment 1 Manifestations of Tone Resting Tremors PT-OP-J Posture/Palpation/Skin Start: 03/05/18 09:28 Freq: Status: Active Protocol: Document 03/05/18 09:30 AMB (Rec: 03/05/18 15:32 AMB [email or web address]) Posture Evaluation Position Standing Evaluation View Lateral Head/C-Spine Posture Forward Head PT-OP-K Range of Motion Start: 03/05/18 09:28 Freq: Status: Active Protocol: Document 03/05/18 09:30 AMB (Rec: 03/05/18 15:32 AMB [email or web address]) Shoulder Goniometric Range of Motion Shoulder Measured in Degrees L Testing Position Sitting Flexion 150 R Testing Position Sitting Flexion 160 PT-OP-M Strength Start: 03/05/18 09:28 Freq: Status: Active Protocol: Document 03/05/18 09:30 AMB (Rec: 03/05/18 15:32 AMB [email or web address]) Hip Strength Hip Manual Muscle Testing Right Flexion (L2) 4 Good Extension (S1) 4 Good Abduction 4 Good Adduction 4 Good Left Flexion (L2) 4+ Good+ Extension (S1) 4+ Good+ Abduction 4+ Good+ Adduction 4+ Good+ Knee Strength Knee Manual Muscle Testing Left Flexion (S2) 5 Normal Extension (L3) 5 Normal R Flexion (S2) 5 Normal Extension (L3) 5 Normal Ankle/Foot Strength Ankle and Foot Manual Muscle Testing Right Dorsiflexion (L4) 4+ Good+ Plantarflexion (S1) 4+ Good+ Left Dorsiflexion (L4) 4+ Good+ Plantarflexion (S1) 4+ Good+ PT-OP-Q Treatments Start: 03/05/18 09:28 Freq: Status: Active Protocol: Document 03/28/18 09:30 AMB (Rec: 03/28/18 11:06 AMB [id number]) Therapeutic Exercises Supine Exercises 3 Supine Exercise Name piriformis stretch Reps/Minutes 30 sec x 2 2 Supine Exercise Name hamstring stretch Reps/Minutes 30 sec x 2 1 Supine Exercise Name hip flexor stretch Reps/Minutes 30 sec x 2 Sitting Exercises 2 Sitting Exercise Name seated rotation with reach Side bilateral Reps/Minutes 10 1 Sitting Exercise Name forward flexion, then seated shoulder horizontal abduction Side bilateral Reps/Minutes 10 Comments added headturns Gait Training Gait Activity 1 Description Ambulation without AD Level of Assistance Independent Distance/Duration 1200' Comments focus on speed and armswing Neuro Re-Education Treatment Balance Activities 6 Details 3 step SLS HT Reps/Duration 5 min 5 Details Backward stepping Reps/Duration 12 each 4 Details Lateral stepping Reps/Duration 12 each 3 Details Forward stepping Reps/Duration 12 each 2 Details WBOS trunk rotation Surface firm Reps/Duration 12 each side 1 Details Stride stance weightshifting with alternating UE movement Surface firm Reps/Duration 12 each side PT-OP-T Assessment and Plan Start: 03/05/18 09:28 Freq: Status: Active Protocol: Document 03/28/18 09:30 AMB (Rec: 03/28/18 11:06 AMB [email or web address]) Physical Therapy Assessment Assessment Summary Assessment Better arm swing with walking today. Pt tolerated increased resistance well. Physical Therapy Plan Next Visit Focus/Plan Next Note Type Treatment Note Next Visit Plan 6MWT next visit Please Sign and Return: I have reviewed this Plan of Care and certify that the skilled therapy services above are required to meet the patient???s needs. Physician Signature Date Printed Name and Credentials Clinical Instructor Signature Printed Name and Credentials
--- NOTE | 2018-03-29 13:31 | PT.OTN ---
Current Diagnoses Parkinson's disease (03/29/18) Physical Therapy Treatment Note PT-OP-A Visit Information Start: 03/05/18 09:28 Freq: Status: Active Protocol: Document 03/29/18 09:30 AMB (Rec: 03/29/18 10:30 AMB [id number]) Out-Patient Physical Therapy Visit Information Visit Information Visit Type Treatment Note Visit Start Time 09:30 Visit Stop Time 10:30 Total Visit Minutes 60 Visit Number 15 Evaluation Information Evaluation Date 03/05/18 PT-OP-B Current Condition Start: 03/05/18 09:28 Freq: Status: Active Protocol: Document 03/05/18 09:30 AMB (Rec: 03/05/18 11:49 AMB [email or web address]) Current Condition History of Current Condition Current Complaints R hand tremor, decreased gait speed History of Current Condition The patient notes Parkinson's diagnosis 3.5 years ago. His main symptom is R hand tremor. He is left handed. His father and brother have also been diagnosed with Parkinson' s. Prior Functional Status Baseline Function- ADL's Independent Baseline Function- Mobility Independent Current Functional Impairments (Reported) Functional Limitations- ADL's Increased time to get belt on. Decreased gait speed. Personal Factors Other Personal Factors That May Effect Pacemaker Therapy/Recovery PT-OP-C Subjective Start: 03/05/18 09:28 Freq: Status: Active Protocol: Document 03/29/18 09:30 AMB (Rec: 03/29/18 13:26 AMB [email or web address]) OP-PT Subjective Patient Comments Patient Comments Pt states he was able to weedwhack ok, but did notice L arm pain with it. PT-OP-D Balance Start: 03/05/18 09:28 Freq: Status: Active Protocol: Document 03/05/18 09:30 AMB (Rec: 03/05/18 11:57 AMB [email or web address]) Balance Tests Romberg Romberg steps after 10 seconds Single Limb Standing Single Limb- Right 15 seconds Single Limb- Left 15 seconds Semi-Tandem Standing Semi-Tandem Standing Balance with head turns and eyes closed increased sway but able to perform PT-OP-E Functional Tests Start: 03/05/18 09:28 Freq: Status: Active Protocol: Document 03/05/18 09:30 AMB (Rec: 03/05/18 15:32 AMB [email or web address]) Functional Tests 6 Minute Walk Test Distance 1858 feet Device Used none Five Times Sit to Stand Test Score 8 seconds PT-OP-G Mobility & Gait Start: 03/05/18 09:28 Freq: Status: Active Protocol: Document 03/05/18 09:30 AMB (Rec: 03/05/18 15:32 AMB [email or web address]) OP Gait Assessment Gait Gait Assistance Required: Independent Assistive Devices Assistive Device None Comments Gait Comments Decreased R arm swing even with fast gait. Decreased trunk rotation. PT-OP-H Neuro Start: 03/05/18 09:28 Freq: Status: Active Protocol: Document 03/05/18 09:30 AMB (Rec: 03/05/18 15:32 AMB [email or web address]) Muscle Tone Tone Assessment 1 Manifestations of Tone Resting Tremors PT-OP-J Posture/Palpation/Skin Start: 03/05/18 09:28 Freq: Status: Active Protocol: Document 03/05/18 09:30 AMB (Rec: 03/05/18 15:32 AMB [email or web address]) Posture Evaluation Position Standing Evaluation View Lateral Head/C-Spine Posture Forward Head PT-OP-K Range of Motion Start: 03/05/18 09:28 Freq: Status: Active Protocol: Document 03/05/18 09:30 AMB (Rec: 03/05/18 15:32 AMB [email or web address]) Shoulder Goniometric Range of Motion Shoulder Measured in Degrees L Testing Position Sitting Flexion 150 R Testing Position Sitting Flexion 160 PT-OP-M Strength Start: 03/05/18 09:28 Freq: Status: Active Protocol: Document 03/05/18 09:30 AMB (Rec: 03/05/18 15:32 AMB [email or web address]) Hip Strength Hip Manual Muscle Testing Right Flexion (L2) 4 Good Extension (S1) 4 Good Abduction 4 Good Adduction 4 Good Left Flexion (L2) 4+ Good+ Extension (S1) 4+ Good+ Abduction 4+ Good+ Adduction 4+ Good+ Knee Strength Knee Manual Muscle Testing Left Flexion (S2) 5 Normal Extension (L3) 5 Normal R Flexion (S2) 5 Normal Extension (L3) 5 Normal Ankle/Foot Strength Ankle and Foot Manual Muscle Testing Right Dorsiflexion (L4) 4+ Good+ Plantarflexion (S1) 4+ Good+ Left Dorsiflexion (L4) 4+ Good+ Plantarflexion (S1) 4+ Good+ PT-OP-Q Treatments Start: 03/05/18 09:28 Freq: Status: Active Protocol: Document 03/29/18 09:30 AMB (Rec: 03/29/18 13:26 AMB [email or web address]) Therapeutic Exercises Supine Exercises 3 Supine Exercise Name piriformis stretch Reps/Minutes 30 sec x 2 2 Supine Exercise Name hamstring stretch Reps/Minutes 30 sec x 2 1 Supine Exercise Name hip flexor stretch Reps/Minutes 30 sec x 2 Sitting Exercises 2 Sitting Exercise Name seated rotation with reach Side bilateral Reps/Minutes 10 1 Sitting Exercise Name forward flexion, then seated shoulder horizontal abduction Side bilateral Reps/Minutes 10 Comments added headturns Gait Training Gait Activity 1 Description Ambulation without AD Level of Assistance Independent Distance/Duration 2000' Comments focus on speed and armswing Neuro Re-Education Treatment Balance Activities 6 Details 3 step SLS HT Reps/Duration 5 min 5 Details Backward stepping Reps/Duration 12 each 4 Details Lateral stepping Reps/Duration 12 each 3 Details Forward stepping Reps/Duration 12 each 2 Details WBOS trunk rotation Surface firm Reps/Duration 12 each side PT-OP-T Assessment and Plan Start: 03/05/18 09:28 Freq: Status: Active Protocol: Document 03/29/18 09:30 AMB (Rec: 03/29/18 10:24 AMB [email or web address]) Physical Therapy Assessment Goals 3 Impairment Functional movement Short Term Goal (STG) The patient will don and doff his belt without difficulty. STG Duration 2 weeks Nursing Home Goal (LTG) The patient will put his jacket on without difficulty and without shoulder pain. LTG Duration 4 weeks 2 Impairment Balance Short Term Goal (STG) The patient will improve his eyes open single leg balance to 30 seconds bilaterally. MET STG Duration 2 weeks Nursing Home Goal (LTG) The patient will perform yardwork for 1 hour without LOB. MET 1 Impairment Gait Short Term Goal (STG) The patient will ambulate with his and keep up with her speed over unevern surfaces. MET STG Duration 2 weeks Sous Chef Goal (LTG) The patient madison increase his 6MWT to 2,000 feet MET 2,016 feet LTG Duration 4 weeks Progress Towards Goals Progress Towards Goals Progressing Toward Goals Assessment Summary Assessment Pt with improved balance and gait, donning belt, jacket remain slow. Physical Therapy Plan Next Visit Focus/Plan Next Note Type Discharge Summary Next Visit Plan Follow up on any patient questions, finalize HEP Please Sign and Return: I have reviewed this Plan of Care and certify that the skilled therapy services above are required to meet the patient???s needs. Physician Signature Date Printed Name and Credentials Clinical Instructor Signature Printed Name and Credentials
--- NOTE | 2018-03-30 10:47 | PT.OTN ---
Current Diagnoses Parkinson's disease (03/30/18) Physical Therapy Treatment Note PT-OP-A Visit Information Start: 03/05/18 09:28 Freq: Status: Active Protocol: Document 03/30/18 09:30 AMB (Rec: 03/30/18 09:32 AMB [email or web address]) Out-Patient Physical Therapy Visit Information Visit Information Visit Type Treatment Note Visit Start Time 09:30 Visit Stop Time 10:30 Total Visit Minutes 60 Visit Number 16 Evaluation Information Evaluation Date 03/05/18 PT-OP-B Current Condition Start: 03/05/18 09:28 Freq: Status: Active Protocol: Document 03/05/18 09:30 AMB (Rec: 03/05/18 11:49 AMB [email or web address]) Current Condition History of Current Condition Current Complaints R hand tremor, decreased gait speed History of Current Condition The patient notes Parkinson's diagnosis 3.5 years ago. His main symptom is R hand tremor. He is left handed. His father and brother have also been diagnosed with Parkinson' s. Prior Functional Status Baseline Function- ADL's Independent Baseline Function- Mobility Independent Current Functional Impairments (Reported) Functional Limitations- ADL's Increased time to get belt on. Decreased gait speed. Personal Factors Other Personal Factors That May Effect Pacemaker Therapy/Recovery PT-OP-C Subjective Start: 03/05/18 09:28 Freq: Status: Active Protocol: Document 03/30/18 09:30 AMB (Rec: 03/30/18 10:47 AMB [email or web address]) OP-PT Subjective Patient Comments Patient Comments Pt reports he is feeling good, no questions about his HEP. PT-OP-D Balance Start: 03/05/18 09:28 Freq: Status: Active Protocol: Document 03/30/18 09:30 AMB (Rec: 03/30/18 10:47 AMB [email or web address]) Balance Tests Single Limb Standing Single Limb- Right 30 seconds + Single Limb- Left 30 seconds + PT-OP-E Functional Tests Start: 03/05/18 09:28 Freq: Status: Active Protocol: Document 03/05/18 09:30 AMB (Rec: 03/05/18 15:32 AMB [email or web address]) Functional Tests 6 Minute Walk Test Distance 1858 feet Device Used none Five Times Sit to Stand Test Score 8 seconds PT-OP-G Mobility & Gait Start: 03/05/18 09:28 Freq: Status: Active Protocol: Document 03/30/18 09:30 AMB (Rec: 03/30/18 10:47 AMB [email or web address]) OP Gait Assessment Comments Gait Comments Pt ambulates without assistive device. Slightly less arm swing on the left when not concentrating on it. PT-OP-H Neuro Start: 03/05/18 09:28 Freq: Status: Active Protocol: Document 03/05/18 09:30 AMB (Rec: 03/05/18 15:32 AMB [email or web address]) Muscle Tone Tone Assessment 1 Manifestations of Tone Resting Tremors PT-OP-J Posture/Palpation/Skin Start: 03/05/18 09:28 Freq: Status: Active Protocol: Document 03/05/18 09:30 AMB (Rec: 03/05/18 15:32 AMB [email or web address]) Posture Evaluation Position Standing Evaluation View Lateral Head/C-Spine Posture Forward Head PT-OP-K Range of Motion Start: 03/05/18 09:28 Freq: Status: Active Protocol: Document 03/05/18 09:30 AMB (Rec: 03/05/18 15:32 AMB [email or web address]) Shoulder Goniometric Range of Motion Shoulder Measured in Degrees L Testing Position Sitting Flexion 150 R Testing Position Sitting Flexion 160 PT-OP-M Strength Start: 03/05/18 09:28 Freq: Status: Active Protocol: Document 03/05/18 09:30 AMB (Rec: 03/05/18 15:32 AMB [email or web address]) Hip Strength Hip Manual Muscle Testing Right Flexion (L2) 4 Good Extension (S1) 4 Good Abduction 4 Good Adduction 4 Good Left Flexion (L2) 4+ Good+ Extension (S1) 4+ Good+ Abduction 4+ Good+ Adduction 4+ Good+ Knee Strength Knee Manual Muscle Testing Left Flexion (S2) 5 Normal Extension (L3) 5 Normal R Flexion (S2) 5 Normal Extension (L3) 5 Normal Ankle/Foot Strength Ankle and Foot Manual Muscle Testing Right Dorsiflexion (L4) 4+ Good+ Plantarflexion (S1) 4+ Good+ Left Dorsiflexion (L4) 4+ Good+ Plantarflexion (S1) 4+ Good+ PT-OP-Q Treatments Start: 03/05/18 09:28 Freq: Status: Active Protocol: Document 03/30/18 09:30 AMB (Rec: 03/30/18 10:47 AMB [email or web address]) Therapeutic Exercises Supine Exercises 3 Supine Exercise Name piriformis stretch Reps/Minutes 30 sec x 2 2 Supine Exercise Name hamstring stretch Reps/Minutes 30 sec x 2 1 Supine Exercise Name hip flexor stretch Reps/Minutes 30 sec x 2 Sitting Exercises 2 Sitting Exercise Name seated rotation with reach Side bilateral Reps/Minutes 10 1 Sitting Exercise Name forward flexion, then seated shoulder horizontal abduction Side bilateral Reps/Minutes 10 Comments added headturns Gait Training Gait Activity 2 Description Stairs Device Used none Level of Assistance independent Comments with cognitive distraction Neuro Re-Education Treatment Balance Activities 6 Details 3 step SLS HT Reps/Duration 5 min 5 Details Backward stepping Reps/Duration 12 each 4 Details Lateral stepping Reps/Duration 12 each 3 Details Forward stepping Reps/Duration 12 each 2 Details WBOS trunk rotation Surface firm Reps/Duration 12 each side 1 Details Stride stance weightshifting with alternating UE movement Surface firm Reps/Duration 12 each side PT-OP-T Assessment and Plan Start: 03/05/18 09:28 Freq: Status: Active Protocol: Document 03/30/18 09:30 AMB (Rec: 03/30/18 10:47 AMB [email or web address]) Physical Therapy Assessment Goals 3 Impairment Functional movement Short Term Goal (STG) The patient will don and doff his belt without difficulty. NOT MET STG Duration 2 weeks Lead Front Desk Agent Goal (LTG) The patient will put his jacket on without difficulty and without shoulder pain. MET LTG Duration 4 weeks 2 Impairment Balance Short Term Goal (STG) The patient will improve his eyes open single leg balance to 30 seconds bilaterally. MET STG Duration 2 weeks [facility] Goal (LTG) The patient will perform yardwork for 1 hour without LOB. MET 1 Impairment Gait Short Term Goal (STG) The patient will ambulate with his and keep up with her speed over unevern surfaces. MET STG Duration 2 weeks [facility] Goal (LTG) The patient madison increase his 6MWT to 2,000 feet MET 2,016 feet LTG Duration 4 weeks Assessment Summary Assessment The patient is independent with his HEP. He can perform all ADLS independently, and can walk at an appropriate speed, although his self selected speed is slower. He continues to perform yardwork and home projects independently. Physical Therapy Plan Discharge Physical Therapy Discharge Reasons Goals Met Discharge Comments Pt completed BIG program. Please Sign and Return: I have reviewed this Plan of Care and certify that the skilled therapy services above are required to meet the patient?s needs. Physician Signature Date Printed Name and Credentials Clinical Instructor Signature Printed Name and Credentials
== END 2018-04-20 15:17 ==
LOC: PHYS 09:30
PROVIDERS: PCP Psychiatry & Neurology Neurology; Visit Provider Psychiatry & Neurology Neurology
DX: G20 Parkinson's disease (principal)
CPT/HCPCS: 97110; 97112; 97116; 97161

== ENCOUNTER 2019-11-26 06:16 | Inpatient (IN) | payer BC, MEDICARE, SELFPAY ==
[2019-11-04 09:02] VITALS: BMI 29.0
[2019-11-26] VITALS (16 sets, daily range): BP systolic 116–146; BP diastolic 65–81; PULSE 60–75; RESP 10–18; TEMP 36.2–36.9; O2SAT 94–98; BMI 29.0
--- NOTE | 2019-11-26 | DI.RAD.S_ITS ---
PROCEDURE: XR HIP W PEL IF DONE LT 2V INDICATIONS: INTERIOR R ANTERIOR TOTAL HIP TECHNIQUE: 2 view(s) of the hip acquired. COMPARISON: [facility], [place], XR HIP W PEL IF DONE LT 2V, 11/26/2019, 12:14. FINDINGS: Patient is status post left hip hip arthroplasty, with hardware components in expected positions. The hip joint appears congruent. The visualized bony structures appear intact. IMPRESSION: Intraoperative fluoroscopic support for left total hip arthroplasty. No gross hardware complications. Dictated by: Baldo Carbera M.D. on 11/26/2019 at 21:37 Approved by: Baldo Cabrera M.D. on 11/26/2019 at 21:38
[2019-11-26] MEDS: LACTATED RINGERS 1,000 ML 42 ML IV ×2 (07:03→10:19)
[2019-11-26] MEDS: VANCOMYCIN 1,000 MG/200 ML PIGGYBACK 200 MG IV (07:06)
[2019-11-26] MEDS: PREGABALIN 75 MG CAPSULE PO (07:06)
[2019-11-26] MEDS: ACETAMINOPHEN 325 MG TABLET 975 MG PO (07:06)
[2019-11-26] MEDS: CELECOXIB 200 MG CAPSULE PO (07:06)
--- NOTE | 2019-11-26 07:53 | PM.PREOP ---
Pre-operative Note Interval Note History & Physical reviewed/Exam performed by Physician: Yes Changes to H&P: No
--- NOTE | 2019-11-26 07:53 | PM.OP.1 ---
Operative Date/Time/Diagnoses Date of procedure: 11/26/19 Time of procedure: 07:59 Pre-op diagnosis: left hip OA Post-op diagnosis: same Procedure & Clinicians Procedure: left total hip arthroplasty anterior Same procedure as scheduled: Yes Indications: The patient has had progressively worsening left hip pain with radiographic changes consistent with arthritis. Non-operative management has failed and the patient has requested total hip replacement. The risks, benefits and alternatives to surgery were discussed with the patient prior to proceeding. Risks discussed included, but were not limited to, failure to relieve pain, leg length discrepancy, dislocation, stiffness, infection, nerve damage, deep venous thrombosis, pulmonary embolism, stroke, coma, heart attack, permanent paralysis and , as well as the potential need for eventual revision of the prosthetic. Surgeon: Marlene Mchugh Business Analyst Sales Operations: Kelsey Norton Anesthesia Type: General and Spinal Operative Notes Findings: Severe left hip arthritis, good bone, good stability Closure Type: primary Specimen(s): none sent Prosthetic devices, grafts, tissues, transplants, or devices: Mchugh and Nephew 60 R3 cup, anthology high offset 11, +0 oxinium head Estimated Blood Loss (mL): 250 Blood products transfused: none Procedure in detail: The patient was brought to the operating room. Patient was carefully positioned in the supine position. Time-out was performed and antibiotics were given. Anesthesia was induced. He was positioned in the on the table in order to allow hyperextension of the hip. The left lower extremity was prepped and draped in a standard sterile fashion. An anterior left hip incision was made 1 fingerbreadth lateral to the anterior superior iliac spine and extended distally towards the greater trochanter. Dissection was carried out through skin and subcutaneous tissues. The skin and subcutaneous tissues were carefully injected with Lidocaine with epi. Superficial hemostasis was achieved. The fascia over the tensor fascia heaven was defined and incised with a knife. Two Allis clamps were used to grasp the fascia. Tensor fascia heaven was retracted laterally. A gelpi retractor was placed. Dissection was carried out down along the neck. The circumflex vessels were carefully identified and cauterized with the Aqua Mantis. There was good visualization of the femoral neck. A Cobra was placed superior to the neck and the gluteus fibers were carefully stripped from that superior aspect of the capsule. A 2nd retractor was placed along the inferior aspect of the neck. The rectus insertion along the capsule was partially released. A 3rd retractor that was then gently placed over the rim of the acetabulum under the rectus. Capsule was carefully incised and released from the intertrochanteric line circumferentially superior to the mid sagittal line and inferiorly to the mid sagittal line until the lesser trochanter was palpable. A tag stitch was placed both in the superior and inferior limb of the capsular insertion. Along the acetabulum capsule was also released up to the mid sagittal 12:00 position. A portion of the labrum was resected. A saw was used to perform an osteotomy at the level of the intertrochanteric line and the junction of the superior femoral neck leaving approximately 1 finger breath of residual inferior neck above the lesser trochanter. A 2nd cut was made along the femoral neck at the base of the head and a napkin ring of neck was removed. Corkscrew was placed in the femoral head and the head was removed without difficulty. Retractors were then repositioned around the acetabulum. Residual labrum was resected and additional osteophytes were removed. A reamer that was 4 mm below the templated size was placed by hand in the acetabulum and it was reamed to centralize the acetabulum. It was then reamed up to 2 under the templated size and fluoroscopy was brought in to confirm the position of the reaming and depth of reaming. I reamed 1 under the anticipated size. A trial cup was placed and noted that it was appropriately sized and fluoroscopy confirmed position and depth. The component was open and inserted without difficulty fluoroscopic imaging was used to confirm that the cup had been adequately seated and was well positioned. Neutral poly liner was placed. The cup was tested and noted to be stable. Attention was then directed to the femur. The femur was gently hyperextended additional capsular release was performed as needed in order to allow adequate visualization of the proximal femur with elevation of the femur. Patient was placed in a hyperextended slightly adducted position with maximum external rotation. Box osteotome was used to check for any residual neck as well as sclerotic bone along the trochanter. Dulce pepper was placed in the femur. Additional broaching was performed. Canal finder was used to determine the alignment of the canal and position. Size 1 broach was placed. The canal was then appropriately broached up to the templated size as long as there was adequate stability of the broach and serial advancement of the broach without excessive impingement. Specific attention was directed at avoiding varus attempting to direct the distal aspect of the broach more anteriorly and avoiding excessive anteversion. Trial reduction showed acceptable range of motion, good stability, no posterior impingement, hinduism of leg length and appropriate lateral shuck. I also hyperflexed the hip and checked that there was no impingement anteriorly and there was good stability with flexion, adduction and internal rotation. Marcaine and Exparel were injected. The stem was placed without difficulty. Repeat trial reduction and x-ray showed acceptable overall position, length, and no evidence of the femoral fracture. Final head was placed. Wound was meticulously irrigated with normal saline. The hip was reduced and additional Exparel and Marcaine were injected. The capsule was closed with interrupted nonabsorbable sutures. The fascia of the tensor was closed with interrupted and running Vicryl. No drain was placed. Any tensor fascia heaven muscle that appeared to be contused or injured which was a minimal amount was carefully resected. Capsule around the tensor was injected with Exparel and Marcaine. The skin was closed with barbed stitches for the subcutaneous tissue and skin. We also used surgical glue. The wound was dressed sterilely. Brief Betadine soak was also used and was meticulously irrigated with normal saline. Patient was transferred to recovery room in satisfactory condition. Complications: none Post-operative Condition: stable Disposition: Acute Care Plan for aftercare: The patient will be maintained on a standard total hip replacement protocol with weight bearing as tolerated and anterior hip precautions. The patient will receive Aspirin and sequential compression devices for DVT prophylaxis. The patient will be discharged home when safe for the home environment.
[2019-11-26] MEDS: CEFAZOLIN 2 GM/100 ML FROZ.PIGGY IV ×3 (07:55→23:34)
--- NOTE | 2019-11-26 08:33 | SUR.OPER ---
Supine on padded [place] table with bilateral legs secured in padded positioning boots and suspended in positioning spars, operative leg in traction per surgeon. Head on one pillow. Arm on non-operative side secured on padded armboard <90 degrees abduction. Arm on operative side padded and resting across chest then secured with tape over sheet. Padded perineal post in place per surgeon.
[2019-11-26] MEDS: SODIUM CHLORIDE IRRIG SOLUTION 250 ML, POVIDONE-IODINE SPONGE STICKS 1 APPLIC IRR (08:40)
[2019-11-26] MEDS: TRANEXAMIC ACID 1,000 MG VIAL 1000 MG INJ ×2 (08:41→11:20)
[2019-11-26] MEDS: BUPIVACAINE 0.25% W/ EPI (PF) 10 ML VIAL 60 ML INJ (08:42)
[2019-11-26] MEDS: BUPIVACAINE LIPOSOME 266 MG/20 ML VIAL INJ (08:43)
--- NOTE | 2019-11-26 11:50 | PC.NURSE ---
Day shift: Pt not on AC unit at this time.
[2019-11-26] MEDS: fentaNYL 100 MCG/2 ML INJ IV ×2 (12:08→12:18)
[2019-11-26] MEDS: HYDROMORPHONE 2 MG INJ IV (12:36)
--- NOTE | 2019-11-26 13:16 | PC.NURSE ---
Day shift: Pt on unit at approx 1300. A&Ox3. Oriented to room and call light. VS WNL. RA 96%. Instructed I.S. use. Spouse at bedside for support. Dressing CDI. CMS intact. Call light in reach. Agrees to not get OOB w/o help from staff. Has urinal when needed.
[2019-11-26] MEDS: OXYCODONE IR 5 MG TABLET PO (13:52)
[2019-11-26] MEDS: ACETAMINOPHEN 325 MG TABLET 650 MG PO ×2 (13:53→20:57)
[2019-11-26] MEDS: IBUPROFEN 400 MG TABLET PO ×2 (13:53→20:56)
[2019-11-26] MEDS: LACTATED RINGERS 1,000 ML 125 ML IV ×2 (13:54→21:01)
--- NOTE | 2019-11-26 15:28 | PT.IIE ---
Current Diagnoses Unilateral primary osteoarthritis, left hip (11/26/19) Surgery Performed Operation Date: 11/26/19 07:45 Actual Procedures p Total Hip Arthroplasty/Anterior Approach(Left) - Marlene Mchugh MD Surgical History (Last Updated 11/04/19 @ 09:23 by Keya Chen RN) S/P excision of varicocele (Acute) [place] teeth removed (Acute) Medical History (Last Updated 11/04/19 @ 11:01 by Keya Chen RN) BCC (basal cell carcinoma) (Acute) HLD (hyperlipidemia) (Acute) Neuropathy (Acute) MEL on CPAP (Acute) Pacemaker (Acute 04/26/16) PAF (paroxysmal atrial fibrillation) (Acute) Parkinson disease (Acute ~2013) Physical Therapy Inpatient Evaluation/Re-Eval M1 PT/OT-IP Prior Functional Status Start: 11/26/19 13:32 Freq: NEEDED Status: Active Protocol: Document 11/26/19 15:01 AW (Rec: 11/26/19 15:28 AW [id number]) Medical Review Prior Functional Status Medical History Reviewed Yes Diet/Fluid Consistency Regular Communication WNL Mobility and Gait Pt states he was independent without use of AD and that he could walk ~1/2 mile before needing a rest break due to hip pain. Activities of Daily Living and IADL's Pt was independent with ADL's but admits he had been avoiding socks due to difficulty donning. He had been favoring flip flops or other slip on shoes. Prior Functional Level (Other details) Pt has Parkinson's disease and participated in BIG therapy in February 2018. Social History Household Members spouse Living Arrangements House Number of Floors (Floors) One Floor Number of Stairs To Enter/Railing? 2 YOLANDA through garage without railing Home Environment Standard Height Toilet,Walk in Shower Home Equipment Front Wheel Walker,Straight Cane,Raised Toilet Seat Without Armrests Employment Status Retired Additional Social History Comment Pt is a retired [employer] worker who lives with his , Essence. He sleeps in a firm, tall bed M2 PT-IP Current Condition Start: 11/26/19 13:32 Freq: NEEDED Status: Active Protocol: Document 11/26/19 15:01 AW (Rec: 11/26/19 15:28 AW [id number]) Physical Therapy Current Condition Current Condition Evaluation Date 11/26/19 Treatment Diagnosis L LIANNA, Parkinson's disease, impaired mobility Onset Date 11/26/19 Precautions Anterior Hip Precautions No Hip Extension,No Hip External Rotation Weight Bearing Status Weight Bearing Status Weight Bear as Tolerated M3 PT-IP Subjective Start: 11/26/19 13:32 Freq: NEEDED Status: Active Protocol: Document 11/26/19 15:01 AW (Rec: 11/26/19 15:28 AW [id number]) Subjective Physical Therapy Visit Type Type Initial Evaluation Visit Start Time 14:22 Visit Stop Time 14:55 Total Visit Minutes 33 Notes Pt's spouse, Essence, present throughout evaluation Physical Therapy Visit Comments Patient Comments Pt is feeling good and ready to work with PT Therapy Pain Assessment Pain When Pain Assessed During Mobility Pain Present Pain Present Pain Reported Location Left Hip Intensity 1 Scale Used 0/10 at rest; 1/10 with mobility Description Pressure Pain Management Techniques Apply Cold,Timing of Activity with Medications M4 PT-IP Mobility and Gait Start: 11/26/19 13:32 Freq: NEEDED Status: Active Protocol: Document 11/26/19 15:01 AW (Rec: 11/26/19 15:28 AW [id number]) PT-Bed Mobility Assessment Supine to Sit Supine to Sit Minimal Assistance,1 Person Assistance,Head of Bed Elevated Scooting Scooting to Edge of Bed Standby Assistance Scooting Up and Down in Bed Standby Assistance PT-Transfer Assessment Sit to and From Stand Sit to and from Stand Minimal Assistance,1 Person Assistance,Use of Upper Extremities Equipment Transfer Assistive Device Gait Belt,Front Wheeled Walker Orthotic/Prosthetic Devices or Brace: No Transfers Transfer Destination Bed,Chair Transfer Technique pt ambulated with FWW Transfer Ability Level of Assist Contact Guard Assistance,1 Person Assistance,Use of Upper Extremities Comments Mobility Comments Pt sitting up in bed upon therapist arrival. He completed supine to sit with elevated HOB, exiting to his left with min A x 1 to support the operative leg and to assist with hand hold to pull to sitting. Assist required largely due to pt apprehension with pt expressing no increase in pain. Pt sat EOB with UE support and stood using FWW min A x 1. BP had been 146/81 lying in bed. In standing, pt required mod A x 1 to maintain upright position with tendency to lean forward due to reported lightheadedness. BP after two minutes standing was 122/72. Pt sat again EOB while symptoms cleared. He then stood min A x 1 from raised bed with FWW and transferred to the chair CGA and cues for sequencing. BP in sitting was 148/80. Pt was positioned in the chair with call light and table within reach, ice pack applied, and visiting. Gait Assessment Gait Gait Assistance Required: Contact Guard Assist Distance (Feet) 3 Able to Maintain Weight Bearing Status Yes During Gait Assistive Devices Assistive Device Gait Belt,Front Wheeled Walker Orthotic/Prosthetic Devices or Brace: No Gait Deviations General Gait Pattern Antalgic,Decreased Stride Length,Decreased Feet Clearance,Flexed Trunk,Step-to Gait Factors Limiting Gait Function Factors Limiting Gait Function Decreased Sensation,Decreased Strength,Pain,Poor Balance Comments Gait Comments See mobility comments. Stair Climbing Assessment Comments Stair Climbing Comments Not assessed. PT-Balance Assessment Sitting Balance and Reactions Static Sitting Balance Ability Good Dynamic Sitting Balance Ability Good Standing Balance and Reactions Static Standing Balance Ability Good Dynamic Standing Balance Ability Good Device Used FWW M5 PT-IP Objective Assessments Start: 11/26/19 13:32 Freq: NEEDED Status: Active Protocol: Document 11/26/19 15:01 AW (Rec: 11/26/19 15:28 AW [id number]) Orientation Orientation/Cognition Level of Alertness Alert Orientation Name,Day of Week,Place, Situation Language Function Ability No Deficits Noted Safety Awareness Understands Safety Issues Memory Description No Deficits Noted Gross Range of Motion Upper Extremity ROM Assessment Within Functional Limits Lower Extremity ROM Assessment Left Impaired Strength Upper Extremity Strength Assessment Within Functional Limits Lower Extremity Strength Assessment Left Impaired Coordination Assessment Gross Coordination Gross Coordination WNL Sensation Assessment Sensation Gross Sensation Right LE Impaired,Left LE Impaired Light Touch Impaired Sensation Description Numbness Comments Sensation Comments Pt reports numbess to bilateral buttocks and lateral ankles, generally dull light touch throughout B LE M6 PT-IP Treatment Start: 11/26/19 13:32 Freq: NEEDED Status: Active Protocol: Document 11/26/19 15:01 AW (Rec: 11/26/19 15:28 AW [id number]) Physical Therapy Treatment Exercises Exercises Ankle Pumps,Gluteal Sets,Quad Sets,Heel Slides Education Education Provided Precautions,Weight Bearing Status,Post-Op Packet,Safety Other Treatments Other Treatment Performed Provided education on role of PT, plan of care, post op exercises, weightbearing status, and safe use of FWW. M7 PT-IP Assessment and Plan Start: 11/26/19 13:32 Freq: NEEDED Status: Active Protocol: Document 11/26/19 15:01 AW (Rec: 11/26/19 15:28 AW [id number]) PT Summary Assessment and Plan Potential Rehabilitation Potential Excellent Status of Condition at Evaluation Evolving Summary Impairments Pain,ROM,Strength,Balance, Sensation,Bed Mobility, Transfers,Gait Assessment Summary Bayron is a 69 yo man with history of Parkinson's disease who was seen for PT evaluation on POD0 following L LIANNA with anterior approach. At baseline, he is an independent ambulator without AD. On evaluation, he required min assist for bed mobility and transfers, mod assist for sit to stand. PT anticipates he will meet the functional goals of this plan of care and be able to discharge home with spouse assist and outpatient PT once medically cleared. Goals Bed Mobility Goal Standby Assistance Transfer Goal Standby Assistance,Front Wheeled Walker Gait Goal Standby Assistance,Front Wheel Walker Gait Distance 200 feet Other Goals - up/down 2 steps with CGA/WHIZZER , no railing Days to Meet Goals 2 Frequency of Treatment Frequency Of Treatment Twice a Day Treatment Plan Physical Therapy Treatment Plan Bed Mobility Training,Transfer Training,Gait Training, Therapeutic Exercise,Balance Retraining,Post Op Education, Discharge Planning,Hot or Cold Pack,Neuromuscular Re-ed, Coordination Retraining,Manual Therapy Other Recommendations and Next Treatment asses gait with FWW; assess Focus safety on stairs (and inquire about alt entrance with railing, if needed); caregiver training Recommendations To Nursing Amount of Assist Needed 1 Person Assist Discharge Recommendations PT Discharge Recommendations Home with Assistance, Outpatient PT Transportation Needs at Discharge Private Vehicle
[2019-11-26] MEDS: LEVODOPA PO ×2 (15:46→20:58)
[2019-11-26] MEDS: CARBIDOPA LEVODOPA 1 EACH PO ×2 (15:46→20:58)
[2019-11-26] MEDS: CARBIDOPA PO ×2 (15:46→20:58)
[2019-11-26] MEDS: ASPIRIN EC 81 MG TABLET PO (20:57)
[2019-11-26] MEDS: DOCUSATE 100 MG CAPSULE PO (20:57)
[2019-11-26] MEDS: RASAGILINE 1 MG 1 EACH PO (20:57)
[2019-11-26] MEDS: SIMVASTATIN 40 MG TABLET PO (20:57)
[2019-11-26] MEDS: ROPINIROLE 6 MG 6 EACH PO (21:00)
[2019-11-26] MEDS: METFORMIN HCL 500 MG TABLET PO (21:00)
[2019-11-27] MEDS: IBUPROFEN 400 MG TABLET PO ×3 (00:55→08:40)
--- NOTE | 2019-11-27 03:45 | PC.NURSE ---
Pt alert and oriented x4. Pain controlled with scheduled ibuprofen. Pt requesting nice to be removed, removed nice without issues. Per MD remove nice at 0400. Pt L hip post op incision covered with aquacell dressing, clean dry and intact. Pt has no complaints at this time
[2019-11-27 03:52] VITALS: BP 124/67; PULSE 64; RESP 18; TEMP 36.6; O2SAT 95
[2019-11-27 05:41] LABS: Hematocrit 36.6 % (41-53); Hemoglobin 12.1 g/dL (13.5-17.5)
[2019-11-27 07:55] VITALS: BP 122/73; PULSE 60; RESP 16; TEMP 37; O2SAT 99
[2019-11-27] MEDS: ACETAMINOPHEN 325 MG TABLET 650 MG PO (08:39)
[2019-11-27] MEDS: METFORMIN HCL 500 MG TABLET PO (08:39)
[2019-11-27] MEDS: CARBIDOPA PO (08:40)
[2019-11-27] MEDS: CHOLECALCIFEROL (VITAMIN D3) 1,000 UNIT TABLET 2000 UNIT PO (08:40)
[2019-11-27] MEDS: LEVODOPA PO (08:40)
[2019-11-27] MEDS: DOCUSATE 100 MG CAPSULE PO (08:40)
[2019-11-27] MEDS: ROPINIROLE 6 MG 6 EACH PO (08:40)
[2019-11-27] MEDS: ASPIRIN EC 81 MG TABLET PO (08:40)
[2019-11-27] MEDS: CARBIDOPA LEVODOPA 1 EACH PO (08:41)
--- NOTE | 2019-11-27 09:52 | PT.IPTN ---
Current Diagnoses Unilateral primary osteoarthritis, left hip (11/26/19) Surgery Performed Operation Date: 11/26/19 07:45 Actual Procedures p Total Hip Arthroplasty/Anterior Approach(Left) - Marlene Mchugh MD Physical Therapy Treatment Note M2 PT-IP Current Condition Start: 11/26/19 13:32 Freq: NEEDED Status: Active Protocol: Document 11/26/19 15:01 AW (Rec: 11/26/19 15:28 AW [id number]) Physical Therapy Current Condition Current Condition Evaluation Date 11/26/19 Treatment Diagnosis L LIANNA, Parkinson's disease, impaired mobility Onset Date 11/26/19 Precautions Anterior Hip Precautions No Hip Extension,No Hip External Rotation Weight Bearing Status Weight Bearing Status Weight Bear as Tolerated M3 PT-IP Subjective Start: 11/26/19 13:32 Freq: NEEDED Status: Active Protocol: Document 11/27/19 09:00 LJ (Rec: 11/27/19 09:52 LJ [id number]) Subjective Physical Therapy Visit Type Type Treatment Note Visit Start Time 09:00 Visit Stop Time 09:27 Total Visit Minutes 27 Notes Pt spouse present for CGT Physical Therapy Visit Comments Patient Comments Pt is feeling good and ready to work with PT Therapy Pain Assessment Pain When Pain Assessed During Mobility Pain Present Pain Present Pain Reported M4 PT-IP Mobility and Gait Start: 11/26/19 13:32 Freq: NEEDED Status: Active Protocol: Document 11/27/19 09:00 LJ (Rec: 11/27/19 09:52 LJ [id number]) PT-Transfer Assessment Sit to and From Stand Sit to and from Stand Standby Assistance,Use of Upper Extremities Equipment Transfer Assistive Device Gait Belt,Front Wheeled Walker Orthotic/Prosthetic Devices or Brace: No Transfers Transfer Destination Chair Transfer Ability Level of Assist Standby Assistance,Use of Upper Extremities Comments Mobility Comments Pt sitting in chair SBA for sit<>stand. Lowered foot rest SBA being able to control the foot rest Gait Assessment Gait Gait Assistance Required: Standby Assistance,1 Person Assist Distance (Feet) 400 Able to Maintain Weight Bearing Status Yes During Gait Assistive Devices Assistive Device Gait Belt,Front Wheeled Walker Orthotic/Prosthetic Devices or Brace: No Gait Deviations General Gait Pattern Antalgic,Decreased Stride Length,Decreased Feet Clearance,Step-to Gait Factors Limiting Gait Function Factors Limiting Gait Function Decreased Sensation,Decreased Strength,Pain,Poor Balance Comments Gait Comments Pt able to ambulate in hallway SBA sith monitoring him and cueing him for foot placement and precautions. getting good mechanics during ambulation. Stair Climbing Assessment Evaluation Level of Assist On Stairs Standby Assistance,Contact Guard Assistance,1 Person Assistance Devices Stair Climbing Assistive Devices Front Wheel Walker,Left Railing,Right Railing Technique/Endurance Stair Climbing Direction Ascend and Descend Stair Climbing Technique Step to Step Number of Steps Climbed 3 Stair Climbing Set # Repetitions (reps) 4 Comments Stair Climbing Comments Pt SBA with verbal cueing for platform step x2 w/ instructions on LLE usage and FWW placement. assisted pt on stairs x2 with verbal cues. Pt used bilateral rails similar to home situation. M5 PT-IP Objective Assessments Start: 11/26/19 13:32 Freq: NEEDED Status: Active Protocol: Document 11/26/19 15:01 AW (Rec: 11/26/19 15:28 AW [id number]) Orientation Orientation/Cognition Level of Alertness Alert Orientation Name,Day of Week,Place, Situation Language Function Ability No Deficits Noted Safety Awareness Understands Safety Issues Memory Description No Deficits Noted Gross Range of Motion Upper Extremity ROM Assessment Within Functional Limits Lower Extremity ROM Assessment Left Impaired Strength Upper Extremity Strength Assessment Within Functional Limits Lower Extremity Strength Assessment Left Impaired Coordination Assessment Gross Coordination Gross Coordination WNL Sensation Assessment Sensation Gross Sensation Right LE Impaired,Left LE Impaired Light Touch Impaired Sensation Description Numbness Comments Sensation Comments Pt reports numbess to bilateral buttocks and lateral ankles, generally dull light touch throughout B LE M6 PT-IP Treatment Start: 11/26/19 13:32 Freq: NEEDED Status: Active Protocol: Document 11/27/19 09:00 (Rec: 11/27/19 09:52 [id number]) Physical Therapy Treatment Exercises Exercises Ankle Pumps,Gluteal Sets Education Education Provided Precautions,Safety Other Treatments Other Treatment Performed Provided education on core stability during ambulation and adherance to extension precaution during mobility and ambulation. M7 PT-IP Assessment and Plan Start: 11/26/19 13:32 Freq: NEEDED Status: Active Protocol: Document 11/27/19 09:00 LJ (Rec: 11/27/19 09:52 [id number]) PT Summary Assessment and Plan Potential Rehabilitation Potential Excellent Status of Condition at Evaluation Evolving Summary Impairments Pain,ROM,Strength,Balance, Sensation,Bed Mobility, Transfers,Gait Assessment Summary Pt has performed all his goals with SBA and was able to adequately assist with mobility and gait. Pt is safe to d/c home with assist Goals Bed Mobility Goal Standby Assistance Transfer Goal Standby Assistance,Front Wheeled Walker Gait Goal Standby Assistance,Front Wheel Walker Gait Distance 200 feet Other Goals - up/down 2 steps with CGA/[employer] , no railing Days to Meet Goals 2 Frequency of Treatment Frequency Of Treatment Twice a Day Treatment Plan Physical Therapy Treatment Plan Bed Mobility Training,Transfer Training,Gait Training, Therapeutic Exercise,Balance Retraining,Post Op Education, Discharge Planning,Hot or Cold Pack,Neuromuscular Re-ed, Coordination Retraining,Manual Therapy Other Recommendations and Next Treatment completed successfully and Focus saffely Recommendations To Nursing Amount of Assist Needed 1 Person Assist Discharge Recommendations PT Discharge Recommendations Home with Assistance, Outpatient PT Transportation Needs at Discharge Private Vehicle
--- NOTE | 2019-11-27 10:53 | PC.NURSE ---
Pt IV has been removed, his belongings are packed up, meds returned to Pt from Pharmacy, and spouse is assisting Pt with dressing to leave. Went over d/c instructions with Pt and Spouse-discussed d/c meds, time of last dose, reviewed s/s of infection and performed stroke education. Reminded Pt to not exceed 3000mg of Acetaminophen in 24 hours. Reminded Pt not to drive while on narcotics and to drink plenty of fluids to prevent constipation or dehydration. Discussed dressing to hip and to keep it intact until follow up next Monday. Pt already has his follow up appointment scheduled. Pt and Spouse deny further questions and were taken out by [employer] to POV with all belongings.
--- NOTE | 2019-11-27 17:32 | PM.PNPO.1 ---
Subjective Subjective Date Patient Seen: 11/27/19 Time Patient Seen: 09:00 Interval history: POD #1 s/p left total hip arthroplasty anterior with Dr. Mchugh. Patient is doing well. Pain is mild-moderate in left hip. Pain is well controlled with tylenol and ibuprofen. Shi catheter was removed last night, patient has not voided yet. Patient has mobilized with PT. Denies fever, chills, chest pain, shortness of breath, calf pain. Exam Vital Signs (past 8 hours): Oxygen Delivery Method Room Air Oxygen Flow Rate 0 Narrative Exam Narrative: 69 year old male is laying comfortably in bed, in no apparent distress. A&Ox3. Aquacel dressing CDI on R anterior hip. SCDs in place. Able to actively plantar flex/dorsiflex BL. Sensory function grossly intact to light touch in LE BL. Dorsalis pedis 2+ BL. Calves warm, soft, compressible, non tender to palpation. Objective Labs Result Diagrams: 11/27/19 05:26 Labs: Laboratory Results - last 24 hr 11/27/19 05:26 Hgb 12.1 L Hct 36.6 L Assessment & Plan Post-op Postoperative Procedures: Procedures Operation Date: 11/26/19 07:45 Actual Procedures Side Surgeon p Total Hip Arthroplasty/Anterior Approach Left Marlene Mchugh MD Postoperative status: doing well Postoperative plan: voiding trials and discharge Postoperative plan narrative: Patient will likely discharge home today pending trial of void and PT clearance Patient has prescription for oxycodone at home ASA 81mg BID for 6 weeks for DVT prophylaxis Will follow up with clinic in 1 week. Time Spent With Patient Time with patient: less than 15 minutes Quality VTE Deep Vein Thrombosis/Pulmonary Embolism Present on Admission: No
== END 2019-11-27 10:58 | disposition home or self-care (01) | DRG 470 ==
PROVIDERS: Admitting Provider Orthopaedic Surgery; PCP Internal Medicine; Referring Provider Internal Medicine; Visit Provider Orthopaedic Surgery
PROC: 0SRB02Z Replacement of Left Hip Joint with Metal on Polyethylene Synthetic Substitute, Open Approach (ICD-10-PCS; CPT 27130; principal; 2019-11-26 07:45)
DX: M16.12 Unilateral primary osteoarthritis, left hip (principal); G20 Parkinson's disease; G47.33 Obstructive sleep apnea (adult) (pediatric); I48.91 Unspecified atrial fibrillation; I49.8 Other specified cardiac arrhythmias; Z95.0 Presence of cardiac pacemaker
CPT/HCPCS: 73502; 76000; 85014; 85018; 97116; 97161; 97530; C1776; C9290; J0171; J0690; J1100; J1170; J2250; J2405; J2704; J3010

== ENCOUNTER → 2020-06-23 12:05 | Outpatient (CLI) | payer BC, MEDICARE, SELFPAY ==
[2019-11-26 14:04] VITALS: BMI 29.0
--- NOTE | 2020-06-23 | DI.US.S_ITS ---
PROCEDURE: US RENAL COMPLETE INDICATIONS: UNSPECIFIED SYMPTOMS OF GENITALIA TECHNIQUE: Real-time scanning was performed of the kidneys and bladder, with image documentation. COMPARISON: None. FINDINGS: Kidneys: Kidneys are normal in size. Right kidney measures 12.0 cm long; left kidney measures 12.1 cm long. Right renal cortical thickness is 2.0 cm; left renal cortical thickness is 2.0 cm. There is right renal the lobulated appearance versus scarring. No hydronephrosis or nephrolithiasis. No suspicious solid mass lesions. Bladder: Pre-void bladder volume is 599 mL. Post-void residual is 511 mL. Pre-void images demonstrate no intraluminal masses or stones. There is trabeculated appearance of the bladder wall On pre-void images, neither of the ureteral jets are noted with color Doppler interrogation. (Of note, ureteral jets may not be detectable in up to 25% of cases due to insufficient differences in specific gravity between ureteral and bladder urine). Miscellaneous: No free pelvic fluid. Prostate appears enlarged IMPRESSION: No hydronephrosis. Marked postvoid residual measuring 511 cc. Trabeculated appearance of the bladder wall. Dictated by: Anurag Todd M.D. on 06/23/2020 at 15:58 Approved by: Anurag Todd M.D. on 06/23/2020 at 16:00
== END ==
PROVIDERS: PCP Internal Medicine; Referring Provider Internal Medicine; Visit Provider Internal Medicine
DX: R39.9 Unspecified symptoms and signs involving the genitourinary system (principal)
CPT/HCPCS: 76770